=== PATIENT | female | born 1985 | race Caucasian/White ===

== ENCOUNTER 2020-06-01 01:01 | Outpatient (CLI) | payer OTHER, SELFPAY ==
[2020-06-01 16:32] LABS: SARS-CoV-2 RNA PCR Negative
== END 2020-06-01 01:02 | disposition home or self-care (01) ==
LOC: ANHCOVIDDT 01:01
PROVIDERS: PCP Family Medicine; Visit Provider Internal Medicine Gastroenterology
DX: Z01.812 Encounter for preprocedural laboratory examination (principal); Z20.828 Contact with and (suspected) exposure to other viral communicable diseases
CPT/HCPCS: 87635; C9803; U0003

== ENCOUNTER 2020-06-03 00:44 | Day surgery (SDC) | payer OTHER, SELFPAY ==
[2020-05-20 15:00] VITALS: BMI 31.2
[2020-06-03] MEDS: LACTATED RINGERS 1,000 ML 150 ML IV CONT (10:25)
[2020-06-03 10:33] VITALS: BP 115/66; PULSE 69; RESP 18; TEMP 36.9; O2SAT 100; BMI 30.9
--- NOTE | 2020-06-03 10:54 | WPDANESEPPF ---
Anes - Initial Pre Proc Eval Procedure: Operation Date: 06/03/20 11:00 Proposed Procedures p Esophagogastroduodenoscopy - Adalberto Salcedo MD Date/Time: 06/03/20 10:54 Surgeon: Adalberto Salcedo MD Pre Op Diagnosis: GERD Patient Data Age: 34 Gender: F Height: 5 ft 1 in Weight: 74.3 kg Last Vital Signs Temp 36.9 C 06/03/20 10:33 Pulse 69 06/03/20 10:33 Resp 18 06/03/20 10:33 BP 115/66 06/03/20 10:33 Pulse Ox 100 06/03/20 10:33 Allergies Allergy/AdvReac Type Severity Reaction Status Date / Time codeine Allergy Unknown Unknown Verified 06/02/20 12:29 naproxen Allergy Unknown Difficulty Verified 06/02/20 12:29 Breathing Home Medications Medication Instructions Recorded Confirmed Type cetirizine 10 mg tablet 10 mg PO DAILY 04/17/20 06/02/20 History esomeprazole magnesium 20 mg 20 mg PO DAILY 04/17/20 06/02/20 History tablet,delayed release fluticasone propionate 50 1 spray NASAL DAILY 04/17/20 06/02/20 History mcg/actuation nasal spray,suspension ondansetron HCl 8 mg tablet 8 mg PO Q12H 04/17/20 06/02/20 History propranolol 120 mg 120 mg PO DAILY 04/17/20 06/02/20 History capsule,extended release 24 hr rizatriptan 10 mg tablet 10 mg PO .PRN tablet 04/17/20 06/02/20 History sumatriptan succinate 100 mg tablet 100 mg PO .PRN tablet 04/17/20 06/02/20 History cholecalciferol (vitamin D3) 1,250 1,250 mcg PO WEEKLY 05/13/20 06/02/20 History mcg (50,000 unit) capsule famotidine 20 mg tablet 20 mg PO DAILY 05/13/20 06/02/20 History rimegepant 75 mg disintegrating 75 mg PO ONCE PRN 05/13/20 06/02/20 History tablet duloxetine 60 mg capsule,delayed 60 mg PO DAILY #90 cap 06/02/20 06/02/20 Rx release Patient hx anesthesia problems: none Family hx anesthesia problems: none PMFSH Past Medical History Medical History Anxiety Asthma Bleeding tendency Endometriosis Fibromyalgia Headache Hiatal hernia Migraine Neurocardiogenic syncope Psychiatric disorder Ulcer Family History Family History Father Family history of hypercholesterolemia Mother Hypertension Grandparent Family history of malignant melanoma Family history of malignant neoplasm of skin Social History Social History Alcohol intake: never Anes - Eval Final PreProcedure Day of Procedure 06/03/20 10:54 Patient weight: obese Heart: regular rate and rhythm Lungs: clear to auscultation Airway: Mallampati scale class III Neurological: alert and oriented Last oral intake: >/= 8 hours ASA classification: III Emergent: no Anesthetic plan: proceed Anesthesia type and monitoring: general GIVS and standard monitoring Informed Consent: The patient's anesthetic plan and its attendant risks and benefits were discussed with the patient/family/POA. Questions were solicited and answers provided to the satisfaction of the patient/family/POA.
--- NOTE | 2020-06-03 11:12 | PM.HPGS ---
History of Present Illness History of Present Illness Consent: Risks, benefits, and alternatives have been discussed and questions answered. Patient agrees to proceed with procedure. Chief complaint: GERD Narrative: Debbie Awad is a 34 year old female with longstanding GERD on nexium and better after added pepcid Review of Systems Constitutional: Constitutional: Denies headache(s) and Denies weakness Eyes: Eyes: Denies blurry vision ENT: Reports Normal hearing present, Denies headache(s) and Denies neck pain Cardiovascular: Cardiovascular: Denies chest pain and Denies dyspnea Respiratory: Respiratory: Denies dyspnea Gastrointestinal: Gastrointestinal: Reports no additional gastrointestinal complaints Genitourinary: Genitourinary: Denies dysuria Musculoskeletal: Musculoskeletal: Denies neck pain Integumentary/Breasts: Skin/Breast: Denies dry skin Neurologic: Reports Normal hearing present, Denies headache(s) and Denies weakness Psychiatric: Psychiatric: Denies anxiety Endocrine: Endocrine: Denies change in body appearance Hematologic/Lymphatic: Hematologic/Lymphatic: Denies easy bleeding Allergic/Immunologic: Allergic/Immunologic: Denies urticaria PMFSH Past Medical History Medical History Anxiety Asthma Bleeding tendency Endometriosis Fibromyalgia Headache Hiatal hernia Migraine Neurocardiogenic syncope Psychiatric disorder Ulcer Family History Family History Father Family history of hypercholesterolemia Mother Hypertension Grandparent Family history of malignant melanoma Family history of malignant neoplasm of skin Social History Social History Alcohol intake: never Meds Home Medications and Allergies Home Medications Medication Instructions Recorded Confirmed Type cetirizine 10 mg tablet 10 mg PO DAILY 04/17/20 06/02/20 History esomeprazole magnesium 20 mg 20 mg PO DAILY 04/17/20 06/02/20 History tablet,delayed release fluticasone propionate 50 1 spray NASAL DAILY 04/17/20 06/02/20 History mcg/actuation nasal spray,suspension ondansetron HCl 8 mg tablet 8 mg PO Q12H 04/17/20 06/02/20 History propranolol 120 mg 120 mg PO DAILY 04/17/20 06/02/20 History capsule,extended release 24 hr rizatriptan 10 mg tablet 10 mg PO .PRN tablet 04/17/20 06/02/20 History sumatriptan succinate 100 mg tablet 100 mg PO .PRN tablet 04/17/20 06/02/20 History cholecalciferol (vitamin D3) 1,250 1,250 mcg PO WEEKLY 05/13/20 06/02/20 History mcg (50,000 unit) capsule famotidine 20 mg tablet 20 mg PO DAILY 05/13/20 06/02/20 History rimegepant 75 mg disintegrating 75 mg PO ONCE PRN 05/13/20 06/02/20 History tablet duloxetine 60 mg capsule,delayed 60 mg PO DAILY #90 cap 06/02/20 06/02/20 Rx release Allergies Allergy/AdvReac Type Severity Reaction Status Date / Time codeine Allergy Unknown Unknown Verified 06/02/20 12:29 naproxen Allergy Unknown Difficulty Verified 06/02/20 12:29 Breathing Vital Signs Vital Signs - 24 hr 06/03/20 10:33 Temperature 98.4 F Pulse Rate 69 Respiratory Rate 18 Blood Pressure 115/66 Pulse Oximetry 100 Exam Const: General: comfortable and no acute distress HENMT: General nose exam: Normal nares present Eyes: General: appearance normal, both eyes and all related structures Neck: Neck: no JVD Resp: Auscultation: clear to auscultation bilaterally Cardio: Rate: regular rate Rhythm: regular rhythm GI: Inspection: non-distended GI Palp: Yes Soft to palpation Skin: General skin exam: normal color Neuro: General: gait normal Speech: normal speech Extrem: General: normal to inspection Psych: Mental Status: mental status grossly normal Assessment and Plan Assessment and plan (1) GERD (gastroesophageal reflux disease): Code(
[2020-06-03 11:32] VITALS: BP 103/67; PULSE 67; RESP 19; O2SAT 100
[2020-06-03 11:42] VITALS: BP 116/74; PULSE 63; RESP 20; O2SAT 99
[2020-06-03 11:52] VITALS: BP 114/77; PULSE 66; RESP 20; O2SAT 99
== END 2020-06-03 12:03 | disposition home or self-care (01) ==
PROVIDERS: PCP Family Medicine; Visit Provider Internal Medicine Gastroenterology
PROC: 0DJ08ZZ Inspection of Upper Intestinal Tract, Via Natural or Artificial Opening Endoscopic (ICD-10-PCS; CPT 43235; principal; 2020-06-03 11:00)
DX: K29.50 Unspecified chronic gastritis without bleeding (principal); K21.0 Gastro-esophageal reflux disease with esophagitis; K44.9 Diaphragmatic hernia without obstruction or gangrene; M79.7 Fibromyalgia; F41.9 Anxiety disorder, unspecified; E66.9 Obesity, unspecified; Z68.31 Body mass index [BMI] 31.0-31.9, adult
CPT/HCPCS: 43239; 87635; 88305; C9803; J2704; J7120; U0003

== ENCOUNTER 2020-07-16 11:00 | Outpatient (NON) | payer OTHER, SELFPAY ==
[2020-07-16 21:43] LABS: SARS-CoV-2 RNA PCR Negative
== END 2020-07-16 11:01 ==
LOC: ANHCOVIDDT 11:01
PROVIDERS: PCP Family Medicine; Visit Provider Physician Assistant Medical
DX: R68.89 Other general symptoms and signs (principal); Z20.828 Contact with and (suspected) exposure to other viral communicable diseases
CPT/HCPCS: 87635; C9803; U0003

== ENCOUNTER → 2021-02-16 06:48 | Outpatient (CLI) | payer OTHER, SELFPAY ==
[2021-02-18 17:40] LABS: SARS-CoV-2 RNA PCR Negative
== END ==
PROVIDERS: PCP Family Medicine; Visit Provider Nurse Practitioner Family
DX: Z20.822 Contact with and (suspected) exposure to COVID-19 (principal); R09.89 Other specified symptoms and signs involving the circulatory and respiratory systems
CPT/HCPCS: C9803; U0003; U0005

== ENCOUNTER → 2023-05-25 11:52 | Outpatient (CLI) | payer OTHER, SELFPAY ==
--- NOTE | ~2023-05-25 | MMUS_ITS ---
EXAMINATION: MM diagnostic yonatan LT w kaitlin, US breast LT limited HISTORY: Palpable lump in the upper outer quadrant of the left breast TECHNIQUE: Craniocaudal, mediolateral, and mediolateral oblique 3-D tomosynthesis images of the breas ts were performed and synthetic 2-D images were generated. CAD analysis was submitted and interpreted . High resolution limited left breast ultrasound was performed. COMPARISON: None, baseline BREAST PARENCHYMAL COMPOSITION: The breasts are heterogeneously dense, which may obscure small masses . FINDINGS: MAMMOGRAPHIC FINDINGS: No suspicious mass, calcification, or architectural distortion are identified to suggest malignancy. No mammographic correlate is identified for the reported palpable abnormality of concern. ULTRASOUND: There is no evidence of focal abnormal solid or cystic mass in the vicinity of the reported palpable abnormality of concern. IMPRESSION: 1. No specific mammographic or sonographic correlate is identified for the reported palpable abnormal ity of concern. Further evaluation at this time should be based on clinical assessment. Continued fol low-up physical examination is recommended. 2. Recommend routine screening mammography beginning at age 40. BI-RADS Category 1: Negative Reviewed, dictated and finalized at location L. IMPRESSION: 1. No specific mammographic or sonographic correlate is identified for the repo rted palpable abnormality of concern. Further evaluation at this time should be based on clinical assessment. Continued follow-up physical examination is sam mmended. 2. Recommend routine screening mammography beginning at age 40. BI-RADS Category 1: Negative
== END ==
PROVIDERS: PCP Family Medicine
DX: N63.21 Unspecified lump in the left breast, upper outer quadrant (principal)
CPT/HCPCS: 76642; 77061; 77065; G0279

== ENCOUNTER 2023-09-07 14:22 | Outpatient (CLI) | payer OTHER, SELFPAY ==
--- NOTE | ~2023-09-07 | XR_ITS ---
EXAMINATION: XR chest 2V DATE: 09/07/2023 14:50 INDICATION: Cough. COVID-19. TECHNIQUE: Frontal and lateral views of the chest were obtained. COMPARISON: None. FINDINGS: The chest demonstrates clear lungs without pneumonia, pleural effusion, or pneumothorax. Th e heart size is normal. IMPRESSION: 1. No acute cardiopulmonary disease. Reviewed, dictated and finalized at location A. HER OPERATOR
== END 2023-09-07 14:23 | disposition home or self-care (01) ==
LOC: ANHIMG 14:25
PROVIDERS: PCP Family Medicine; Visit Provider Nurse Practitioner Family
DX: U07.1 COVID-19 (principal)
CPT/HCPCS: 71046

== ENCOUNTER 2025-05-16 08:38 | Emergency (ER) | payer OTHER, SELFPAY ==
--- OUTSIDE RECORDS SUMMARY | 2025-05-14 15:16 | XMS_ITS | Encounter Summary ---
Author Organization [facility] Healthcare Address [address] [place] [address] Care Team Providers Care Pipe Machine Operator Name Role Phone Soy Nguyen MD Primary Care Provider [phone] Encounter Details Date Type Department Care Team (Latest Contact Info) Description 05/14/2025 3:16 PM CDT - 05/14/2025 11:59 PM CDT Hospital Encounter [address] [address] Other dysphagia Discharge Disposition: Discharge to home or self care Social History Tobacco Use Types Packs/Day Years Used Date Smoking Tobacco: Every Day Cigarettes 0.5 13 Started: 04/22/2005; Last attempted to quit: 04/22/2018 Smokeless Tobacco: Never Alcohol Use Standard Drinks/Week Comments Yes 0 (1 standard drink = 0.6 oz pur e alcohol) Comments Unknown Sex and Gender Information Value Date Recorded Sex Assigned at Not on file 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 Gender Identity Not on file Sexual Orientation Not on file documented as of this encounter Medications at Time of Discharge acetaZOLAMIDE (DIAMOX) 125 mg tablet Take 1 tab by mouth twice daily starting 2-3 day before flying/altitude change 30 tablet 1 12/12/2022 buPROPion SR (WELLBUTRIN SR) 150 mg 12 hr tablet Take 1 tablet (150 mg total) by mouth 2 (two) times a day dextroamphetamine-a mphetamine XR (ADDERALL XR) 15 mg 24 hr capsule Take 1 capsule (15 mg total) by mouth daily 06/04/[address] (NexIUM) 40 mg capsule Take 1 capsule (40 mg total) by mouth daily before breakfast famotidine (PEPCID) 20 mg tablet Take 1 tablet (20 mg total) by mouth 2 (two) times a day hydrOXYzine (ATARAX) 25 mg tablet 07/18/2023 ibuprofen (ADVIL,MOTRIN) 600 mg tablet 1 tablet (600 mg total) daily 03/24/2017 ketorolac (TORADOL) 10 mg tablet Take 1 tablet (10 mg total) by mouth every 6 (six) hours as needed for pain Do not exceed 3 doses in 24 hrs and do not take more than 2 consecutive days. 15 tablet 1 04/04/2025 ondansetron ODT (ZOFRAN-ODT) [address] 1 TABLET ON THE TONGUE EVERY 8 HOURS NEEDED FOR NAUSEA OR VOMITING 27 tablet 2 10/08/2024 ondansetron ODT (ZOFRAN-ODT) 8 mg disintegrating tabletIndications:C hronic migraine without aura without status migrainosus, not intractable Take 1 tablet (8 mg total) by mouth every 8 (eight) hours as needed for nausea or vomiting 20 tablet 1 12/28/2023 predniSONE (DELTASONE) 20 mg tablet Take 1 tablet (20 mg) by mouth daily for 5 days 5 tablet 05/14/2025 05/19/20 25 rimegepant (Nurtec ODT) tablet,disintegrati ngIndications:Chron ic migraine without aura without status migrainosus, not intractable Take 1 tablet (75 mg total) by mouth daily as needed (migraine) 8 tablet 11 06/24/2024 rizatriptan (MAXALT) 5 mg tabletIndications:C hronic migraine without aura without status migrainosus, not intractable TAKE 1 TABLET AT ONSET OF MIGRAINE, MAY REPEAT IN 2 HOURS IF UNRESOLVED.DO NOT EXCEED 3 IN 24 HOURS 27 tablet 3 08/28/2024 spironolactone (ALDACTONE) 100 mg tablet 05/31/2024 SUMAtriptan (IMITREX) 100 mg tabletIndications:C hronic migraine without aura without status migrainosus, not intractable TAKE 1 TABLET AT ONSET OF MIGRAINE, MAY REPEAT ONCE AFTER 2 HOURS IF NEEDED.MAXIMUM 2 TABLETS IN 24 HOURS 27 tablet 3 08/28/2024 traZODone (DESYREL) 50 mg tablet Take 1 tablet (50 mg total) by mouth as needed 03/03/2023 documented as of this encounter Discharge Disposition Disposition Code Departure Means Destination Discharge to home or self care documented in this encounter Plan of Treatment Not on file documented as of this encounter Procedures Procedure Name Priority Date/Time Associated Diagnosis Comments THROAT CULTURE Routine 05/14/2025 3:16 PM CDT Other dysphagia documented in this encounter Results * Throat culture Throat (05/14/2025 3:16 PM CDT) Report Final Report: No growth of pathogens. Comment:Testing performed by : [facility], [address] [place]., [address] Throat 05/14/2025 3:16 PM CDT 05/15/2025 1:15 AM CDT Narrative JONATHAN Prabhakar 05/15/2025 8:11 PM CDT Testing performed by [facility] ([phone]). us [facility]CRO[facility] - GENER AL ORDERABLES Final Result JONATHAN LUIS CARLOS [address] Department of Laboratories [place], [place] [phone] documented in this encounter Visit Diagnoses Diagnosis Other dysphagia documented in this encounter Care Teams Pipe Machine Operator Relationship Specialty Start Date End Date Soy Nguyen MD PCP - General Family Medicine 03/24/17 documented as of this encounter
--- NOTE | ~2025-05-16 | CT_ITS ---
EXAMINATION: CT soft tissue neck chest w DATE: 05/16/2025 10:06 INDICATION: Dysphagia TECHNIQUE: Computed tomography (CT) of the neck and chest was performed with 75 mL Omnipaque-350 intravenous contrast. Automated exposure control and iterative reconstruction technique were employed. The dose-length product was 449.54 mGy-cm. COMPARISON: None FINDINGS: Neck CT: Orbits are normal. The paranasal sinuses are clear. Mastoid aircells and middle ear cavities are clear. Submandibular and parotid glands are normal and symmetric. Thyroid gland is unremarkable. There are scattered normal-sized lymph nodes in the neck, no lymphadenopathy. Airway is unremarkable. Epiglottis, aryepiglottic folds and retropharyngeal soft tissues are normal. No masses, abscess or abnormal fluid collections identified. The vasculature is patent and normal in caliber. Likely positional mild reversal of the normal cervical lordosis with mild lower cervical spondylosis. Chest CT: There are couple calcified right upper lobe nodules consistent with old granulomatous disease. No other suspicious pulmonary nodules, pneumonia, pulmonary edema or pleural effusion. Heart size is normal. No pericardial effusion. Normal-appearing diverticulum of [place] along the proximal descending thoracic aorta. No aortic dissection. There is good contrast opacification of the pulmonary arteries demonstrating no pulmonary embolism. No pathologically enlarged thoracic lymphadenopathy. Esophagus appears unremarkable without evident wall thickening or impinging lesions. Visualized upper abdomen is unremarkable. Mild thoracic spondylosis. IMPRESSION: 1. No etiology for reported dysphagia or acute cardiopulmonary disease. Reviewed, dictated and finalized at location A.
--- OUTSIDE RECORDS SUMMARY | 2025-05-16 02:08 | XMS_ITS | Encounter Summary ---
Author Organization [facility] Healthcare Address [address] [place] [address] Care Team Providers Care Java Development Team Lead Name Role Phone Soy Nguyen MD Primary Care Provider Reason for Visit * Reason Comments Sore Throat Encounter Details Date Type Department Care Team (Late st Contact Info) Description 05/16/2025 2:08 AM CDT - 05/16/2025 3:19 AM CDT Emergency [facility] Emergency Department [facility] [place], [place] [address] Discharge Disposition: Left without being seen Social History Tobacco Use Types Packs/Day Years Used Date Smoking Tobacco: Every Day Cigarettes 0.5 13 Started: 04/22/2005; Last attempted to quit: 04/22/2018 Smokeless Tobacco: Never Alcohol Use Standard Drinks/Week Comments Yes 0 (1 standard drink = 0.6 oz pur e alcohol) Personal Safety Answer Date Recorded Have you ever been in or are you currently in a harmful physical or emotional relationship or is someone making you feel afraid or unsafe? 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 Gender Identity Not on file Sexual Orientation Not on file documented as of this encounter Last Filed Vital Signs Vital Sign Reading Time Taken Comments Blood Pressure 133/96 05/16/2025 2:14 AM CDT Pulse 96 05/16/2025 2:14 AM CDT Temperature 37.1 C (98.7 F) 05/16/2025 2:14 AM CDT Respiratory Rate 20 05/16/2025 2:14 AM CDT Oxygen Saturation 100% 05/16/2025 2:14 AM CDT Inhaled Oxygen Concentration - - Weight 58.5 kg (129 lb) 05/16/2025 2:14 AM CDT Height - - Body Mass Index 24.37 04/21/2025 3:01 PM CDT documented in this encounter Medications at Time of Discharge [...] Discharge Disposition Disposition Code Departure Means Destination Left without being seen documented in this encounter ED Notes * Jessica Vegas RN - 05/16/2025 2:12 AM CDT Ongoing sore throat x 2 weeks, states has been having trouble swallowing pills. Has been swabbed for strep, which was negative and seen at yesterday. Speaking in clear sentences in triage without noted distress. Has ENT appt this morning at 9. documented in this encounter Plan of Treatment Not on file documented as of this encounter Visit Diagnoses Not on filedocumented in this encounter Care Teams Java Development Team Lead Relationship Specialty Start Date End Date Soy Nguyen MD PCP - General Family Medicine 03/24/17 documented as of this encounter
--- OUTSIDE RECORDS SUMMARY | 2025-05-16 08:42 | XMS_ITS | Encounter Summary ---
Author Organization [facility] Healthcare Address [address] [place] [address] Care Team Providers Care Technical Sales Support Specialist Name Role Phone Roxana Gauthier DO Primary Care Provider + [phone] Roxana Gauthier DO Primary Care Provider + [phone] Soy Nguyen MD Primary Care Provider [phone] Encounter Details Date Type Department Care Team (Late st Contact Info) Description 1984 Orders Only [facility] [address] [place] [address] Scanning, Provider Social History Tobacco Use Types Packs/Day Years Used Date Smoking Tobacco: Never Assessed Comments Unknown Sex and Gender Information Value Date Recorded Sex Assigned at Not on file 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 Gender Identity Not on file Sexual Orientation Not on file documented as of this encounter Plan of Treatment Not on file documented as of this encounter Procedures Procedure Name Priority Date/Time Associated Diagnosis Comments CARDIOLOGY DOCUMENT SCAN 1984 documented in this encounter Results * Cardiology Document Scan (1984) Anatomical Region Laterality Modality Other us Provider Scanning [facility] CARDIAC SERVICES PROCEDURES Final Result documented in this encounter Visit Diagnoses Not on filedocumented in this encounter Care Teams Technical Sales Support Specialist Relationship Specialty Start Date End Date Roxana Gauthier DO [address] [place] [address] PCP - General 02/15/10 03/23/17 [place] [address] [place] [address] [address] [place], [place] [id number] PCP - General 09/01/09 02/14/10 Soy Nguyen MD [address] [place] [address] [address] [place] [address] PCP - General Family Medicine 03/24/17 documented as of this encounter
--- OUTSIDE RECORDS SUMMARY | 2025-05-16 08:42 | XMS_ITS | Clinical Summary ---
Author Organization [facility] Address [address] [place] [address] Phone Care Team Providers Care Polisher And Buffer Name Role Phone Soy Nguyen MD Primary Care Provider [phone] Allergies Active Allergy Reactions Criticality Noted Date Comments Fremanezumab-Vfrm Rash Medium 05/14/2025 Codeine Stomach upset Reaction: GI UPSET, Naproxen Anaphylaxis High 09/16/2011 Propoxyphene Shortness of breath High Reaction: DIFF BREATHING, Medications ibuprofen (ADVIL,MOTRIN) 600 mg tablet 1 tablet (600 mg total) daily [address] (NexIUM) 40 mg capsule Take 1 capsule (40 mg total) by mouth daily before breakfast Active famotidine (PEPCID) 20 mg tablet Take 1 tablet (20 mg total) by mouth 2 (two) times a day Active buPROPion SR (WELLBUTRIN SR) 150 mg 12 hr tablet Take 1 tablet (150 mg total) by mouth 2 (two) times a day Active acetaZOLAMIDE (DIAMOX) 125 mg tablet Take 1 tab by mouth twice daily starting 2-3 day before flying/altitud e change 30 tablet 1 023 Active traZODone (DESYREL) 50 mg tablet Take 1 tablet (50 mg total) by mouth as needed 023 Active hydrOXYzine (ATARAX) 25 mg tablet 023 Active ondansetron ODT (ZOFRAN-ODT) 8 mg disintegrating tabletIndications :Chronic migraine without aura without status migrainosus, not intractable Take 1 tablet (8 mg total) by mouth every 8 (eight) hours as needed for nausea or vomiting 20 tablet 1 Active Additional Information Patient not taking.Reported on 05/14/2025 dextroamphetamine -amphetamine XR (ADDERALL XR) 15 mg 24 hr capsule Take 1 capsule (15 mg total) by mouth daily Active spironolactone (ALDACTONE) 100 mg tablet Active rimegepant (Nurtec ODT) tablet,disintegra tingIndications:C hronic migraine without aura without status migrainosus, not intractable Take 1 tablet (75 mg total) by mouth daily as needed (migraine) 8 tablet 11 Active SUMAtriptan (IMITREX) 100 mg tabletIndications :Chronic migraine without aura without status migrainosus, not intractable TAKE 1 TABLET AT ONSET OF MIGRAINE, MAY REPEAT ONCE AFTER 2 HOURS IF NEEDED.MAXIMUM 2 TABLETS IN 24 HOURS 27 tablet 3 Active rizatriptan (MAXALT) 5 mg tabletIndications :Chronic migraine without aura without status migrainosus, not intractable TAKE 1 TABLET AT ONSET OF MIGRAINE, MAY REPEAT IN 2 HOURS IF UNRESOLVED.DO NOT EXCEED 3 IN 24 HOURS 27 tablet 3 024 Active ondansetron ODT (ZOFRAN-ODT) [address] 1 TABLET ON THE TONGUE EVERY 8 HOURS NEEDED FOR NAUSEA OR VOMITING 27 tablet 2 Active ketorolac (TORADOL) 10 mg tablet Take 1 tablet (10 mg total) by mouth every 6 (six) hours as needed for pain Do not exceed 3 doses in 24 hrs and do not take more than 2 consecutive days. 15 tablet 1 Active predniSONE (DELTASONE) 20 mg tablet Take 1 tablet (20 mg) by mouth daily for 5 days 5 tablet 025 2024 Active propranoloL (INDERAL) 20 mg tablet Take 1 tablet (20 mg total) by mouth 2 (two) times a day 180 tablet 1 025 2024 Discontinued fremanezumab-vfrm (Ajovy Autoinjector) 225 mg/1.5 mL auto-injector subcutaneous auto-injector Inject 1.5 mL (225 mg total) under the skin every 30 (thirty) days 1.5 mL 11 025 2024 Discontinued Hospital, Clinic, or Other Facility Administered Medication Ordered Dose Route Frequency Start Date End Date Status onabotulinumtoxin A (BOTOX) 200 unit injection 200 UnitsIndications:Int ractable chronic migraine without aura and without status migrainosus 200 Units OTHER Once for Clinic-Administer ed Medication 03/25/2024 Active onabotulinumtoxin A (BOTOX) 200 unit injection 200 UnitsIndications:Int ractable chronic migraine without aura and without status migrainosus 200 Units OTHER Once for Clinic-Administer ed Medication 03/10/2025 Active onabotulinumtoxin A (BOTOX) 200 unit injection 200 UnitsIndications:Int ractable chronic migraine without aura and without status migrainosus 200 Units OTHER Once for Clinic-Administer ed Medication 04/21/2025 04/21/2025 Ended Active Problems Problem Noted Date Diagnosed Date Chronic pain of left knee 05/23/2019 Chronic sinusitis 04/05/2019 Intractable chronic migraine without aura and without status migrainosus 04/23/2018 Generalized anxiety disorder 04/23/2018 Anxiety 11/09/2006 Atypical migraine 11/09/2006 Encounters Date Type Department Care Team Description 05/16/2025 2:08 AM CDT - 05/16/2025 3:19 AM CDT Emergency [facility] Emergency Department [address] [place] [address] Discharge Disposition: Left without being seen 05/16/2025 Results Follow-Up [facility] [address] [phone] Kena Victor NP Throat culture Throat 05/14/2025 3:16 PM CDT - 05/14/2025 11:59 PM CDT Hospital Encounter [address] [address] Other dysphagia Discharge Disposition: Discharge to home or self care 05/14/2025 2:45 PM CDT Office Visit [facility] [address] [phone] Marie Oseguera PA Other dysphagia (Primary Dx) 04/23/2025 8:39 AM CDT - 04/23/2025 11:59 PM CDT Hospital Encounter [facility] [address] [place] [address] Discharge Disposition: Discharge to home or self care 04/21/2025 3:20 PM CDT Procedure visit [facility] General Neurology [address] [facility] 6th [address] [place] [phone] Yasmine Campbell PA Intractable chronic migraine without aura and without status migrainosus (Primary Dx) 04/09/2025 Orders Only [facility] General Neurology [address] [place] [phone] Carrie Trinidad Intractable chronic migraine without aura and without status migrainosus (Primary Dx) 04/07/2025 Telephone [facility] General Neurology [address] [place] [phone] Marvin Enriquez RN 04/04/2025 10:00 AM CDT Telemedicine [facility] General Neurology [address] [place] [phone] Yasmine Campbell PA Intractable chronic migraine without aura and without status migrainosus 02/24/2025 Telephone [facility] General Neurology [address] [place] [phone] Yasmine Campbell PA Ajovy PA 02/21/2025 Orders Only [facility] General Neurology [address] [place] [phone] Yasmine Campbell PA from Last 3 Months Surgical History Surgery Date Site/Laterality Comments SECTION Section - (Added by TW Conv) VT EXPLORATORY LAPAROTOMY CELIOTOMY W/WO BIOPSY SPX Exploratory Laparotomy - endometriosis (Added by TW Conv) SECTION SEPTOPLASTY COSMETIC SURGERY Medical History Medical History Date Comments Personal history of other sp ecified conditions History of headache - (Added by TW Conv) Pre-eclampsia Preeclampsia - 1 st (Added by TW Conv) Endometriosis Endometriosis - (Added by TW Conv) Anxiety Asthma Gastric reflux Migraines Allergic rhinitis Sleep apnea Urinary tract infection Fibromyalgia Jaqueline-Danlos syndrome Neurocardiogenic syncope GERD (gastroesophageal reflux disease) Autoimmune disease Menstrual problem Family History Medical History Relation Name Comments Kidney disease Daughter Glenna Hypertension Mother Migraines Mother Seizures Mother Depression Other 1 Depression - mo ther (Added by TW Conv) Headache Other 2 Headache - pare nts (Added by TW Conv) Anxiety disorder Other 3 Anxiety - f ather (Added by TW Conv) Relation Name Status Comments Daughter Glenna Mother Other 1 Other 2 Other 3 Social History Tobacco Use Types Packs/Day Years Used Date Smoking Tobacco: Every Day Cigarettes 0.5 13 Started: 04/22/2005; Last attempted to quit: 04/22/2018 Smokeless Tobacco: Never Tobacco Cessation:Ready to Q uit: Not Asked; Counseling Given: Not Answered Alcohol Use Standard Drinks/Week Comments Yes 0 [...] on file 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 Gender Identity Not on file Sexual Orientation Not on file Obstetrics History Last Filed Vital Signs Vital Sign Reading Time Taken Comments Blood Pressure 133/96 05/16/2025 2:14 AM CDT Pulse 96 05/16/2025 2:14 AM CDT Temperature 37.1 C (98.7 F) 05/16/2025 2:14 AM CDT Respiratory Rate 20 05/16/2025 2:14 AM CDT Oxygen Saturation 100% 05/16/2025 2:14 AM CDT Inhaled Oxygen Concentration - - Weight 58.5 kg (129 lb) 05/16/2025 2:14 AM CDT Height 154.9 cm (5' 1) 04/21/2025 3:01 PM CDT Body Mass Index 24.37 04/21/2025 3:01 PM CDT Plan of Treatment Health Maintenance Due Date Last Done Comments Breast Cancer Screening-Mammogram 1984 Depression Screening 1984 Hepatitis C Screening 1984 DTaP/Tdap/Td Vaccine (1 - Tdap) 11/30/1995 Varicella Vaccines (1 of 2 - 13+ 2-dose series) 1997 Hepatitis B Screening 2002 Regular Well Visit/Exam 18-64 2002 HPV Vaccines (1 - 3-dose SCD M series) 11/30/2011 Pneumococcal vaccine <65 (2 of 2 - PCV) 07/08/2014 07/08/2013 Influenza Vaccine (#1) 2025 6, 06/12/2015, 05/22/2014, Additional history exists Procedures Procedure Name Priority Date/Time Associated Diagnosis Comments THROAT CULTURE Routine 05/14/2025 3:16 PM CDT Other dysphagia POCT RAPID STREP Routine 05/14/2025 2:55 PM CDT Other dysphagia XR TRANSFER OF OUTSIDE FILMS Routine 04/23/2025 8:39 AM CDT from Last 3 Months Results * Throat culture Throat (05/14/2025 3:16 PM CDT) Report Final Report: No growth of pathogens. Comment:Testing performed by : [facility], [address] [place] [address] Throat 05/14/2025 3:16 PM CDT 05/15/2025 1:15 AM CDT Narrative JONATHAN ALDRIDGE - 05/15/2025 8:11 PM CDT Testing performed by [facility] Microbiology Laboratory ([phone]). us Marie [facility] MICROBIOLOGY - GENER AL ORDERABLES Final Result JONATHAN ALDRIDGE [address] Department [place] [address] * POCT rapid strep A (05/14/2025 2:55 PM CDT) Rapid Strep A, POC Negative Negative Swab 05/14/2025 2:55 PM CDT us Marie [facility] POINT OF CARE TEST ORDER FRANCIS Final Result * XR Outside Reference (04/23/2025 8:39 AM CDT) Impressions [facility] - 04/23/2025 8:39 AM CDT These images are for Reference purposes only and have not been reviewed by [facility]. There will be no report generated by a [facility]. Narrative [facility] - 04/23/2025 8:39 AM CDT EXAMINATION: Images For Reference Purposes Only us Yasmine [facility] XR PROCEDURES Final Re sult [facility] from Last 3 Months Insurance [facility]PPO Address: [facility] [id number] [place] [address] [employer] [facility]/PPO Address: [address] [place] [phone] [employer] H[facility]/PPO Address: [address] [place] [phone] Care Teams Polisher And Buffer Relationship Specialty Start Date End Date Soy Nguyen MD PCP - General Family Medicine 03/24/17
--- OUTSIDE RECORDS SUMMARY | 2025-05-16 08:42 | XMS_ITS | Encounter Summary ---
Author Organization [facility] Address [address] [place] [address] [place] [address] Care Team Providers Care Echo Vasc Tech Name Role Phone Soy Nguyen MD Primary Care Provider [phone] Ashley Paiz MD Unavailable Penny Carmona MD Unavailable [phone] Encounter Details Date Type Department Care Team ([facility]) Description 05/02/2019 Lab Requisition [facility] [address] [place] [phone] Latonia Salazar MD [address] [facility] [facility] [place] [address] Social History Tobacco Use Types Packs/Day Years Used Date Smoking Tobacco: Every Day Cigarettes Smokeless Tobacco: Never Alcohol Use Standard Drinks/Week Comments No 0 (1 standard drink = 0.6 oz pur e alcohol) Comments No Sex and Gender Information Value Date Recorded Sex Assigned at Not on file 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 Gender Identity Not on file Sexual Orientation Not on file documented as of this encounter Plan of Treatment Upcoming Encounters Date Type Department Care Team (Late st Contact Info) Description 05/29/2025 9:00 AM CDT Office Visit [facility] - Rheumatology [address] [address] [facility] [address] [place] [address] [place] [address] [facility] [address] [place] [address] documented as of this encounter Procedures Procedure Name Priority Date/Time Associated Diagnosis Comments DERMATOPATH TECHNICAL REPORT Routine 05/01/2019 12:00 AM CDT documented in this encounter Results * DERMATOPATH TECHNICAL REPORT (05/01/2019 12:00 AM CDT) Case Report Dermatopathology Report Case: [id number] Authorizing Provider: Latonia Salazar MD Collected: 05/01/2019 12:00 AM Pathologist: Kathy Barba MD Received: 05/02/2019 05:43 AM Specimen: Skin, left post auricular 2:17 PM CDT DERMATOPATHOLOGY LABORATORY Clinical History Angioma, BCC. Kyle papule. 2:17 PM CDT DERMATOPATHOLOGY LABORATORY Gross Description Specimen A: Received is one formalin filled container labeled with the patient's name and designated left post auricular. The specimen consists of a shave measuring [id number]. Jar 0. [facility] Dermatopathology Laboratory performed the technical component only. 2:17 PM CDT DERMATOPATHOLOGY LABORATORY Embedded Images 2:17 PM CDT DERMATOPATHOLOGY LABORATORY DISCLAIMER An external and internal positive and negative controls are appropriate for the histochemical, immunohistochemical and immunofluorescence stain(s) in this case (if any), except where stated explicitly. The performance characteristics of the stain(s) cited in this report were developed and its performance characteristic determined by the Dermatopathology Laboratory at [facility], directed by Dr. Cj Acosta. These tests need not be, and therefore are not, approved by the [place] Food and Drug Administration. The tests are used for clinical purposes. 08/08/201 9 2:17 PM CDT DERMATOPATHOLOGY LABORATORY at 1417 CDT Pathology/Cytolog y TISSUE SPECIMEN FROM SKIN / Unknown 05/01/2019 05/02/2019 5:43 AM CDT Latonia Salazar MD LAB - PATHOLOGY/CYTOLOGY ORD ERABLES Final Result DERMATOPATHOLOGY LABORATORY [facility] - Department of Dermatology [address] [place] [address], 5th Floor Lab [address] [phone] documented in this encounter Visit Diagnoses Not on filedocumented in this encounter Care Teams Echo Vasc Tech Relationship Specialty Start Date End Date Soy Nguyen MD [address] [place] [phone] PCP - General Family Medicine 03/24/17 [place] [address] [place] [address] Rheumatology 05/25/17 [place] [address] [place] [address] Pediatrics 05/26/17 documented as of this encounter
--- OUTSIDE RECORDS SUMMARY | 2025-05-16 08:42 | XMS_ITS | Clinical Summary ---
Author Organization [facility] Address [facility] [place] [address] Care Team Providers Care Marketing Proposal Specialist Name Role Phone Soy Nguyen MD Primary Care Provider [phone] Ashley Paiz MD Unavailable Penny Carmona MD Unavailable [phone] Source Comments [facility],non-owned Affiliates and Associated Physician Practices is amultiple site organization consisting of ambulatory clinics and hospital sitesin [place], [place], [place] and [place]. This disclosure is being madepursuant to the Care Everywhere program and may not contain all information available regarding this patient. Last updated 18.[facility] [employer] Allergies Active Allergy Reactions Criticality Noted Date Comments Codeine Nausea and/or Vomiting 09/16/2011 Naproxen Anaphylaxis High 09/16/2011 Propoxyphene N-Apap 03/06/2008 Darvocet Vomit Medications * Be aware that medications may not be up to date on this document. Alwaysverify current medications with the patient. SUMAtriptan (IMITREX) 100 MG tabletIndicatio ns:Pain in both knees, unspecified chronicity Take 1 (one) tablet by mouth daily as needed - may repeat one time for Migraine No more than 2 doses in 24 hours. Active ibuprofen (MOTRIN) 600 MG tabletIndicatio ns:Pain in both knees, unspecified chronicity Take 1 (one) tablet by mouth every 8 hours as needed for Pain 0 7 Active propranolol CR 24hr (INDERAL LA) 120 MG capsuleIndicati ons:Pain in both knees, unspecified chronicity Take 1 (one) capsule by mouth once daily 5 Active rizatriptan (MAXALT) 5 MG tabletIndicatio ns:Pain in both knees, unspecified chronicity Take 1 (one) tablet by mouth as needed for Migraine 5 Active NURTEC 75 MG tablet Take 75 mg by mouth as needed 1 Active esomeprazole (NEXIUM) 40 MG capsule Take 1 (one) capsule by mouth daily before breakfast Active cetirizine (ZYRTEC) 10 MG tablet Take 1 (one) tablet by mouth once daily Active ondansetron (ZOFRAN) 4 MG tablet Take 1 (one) tablet by mouth every 6 hours as needed for Nausea/Vomiting Active Blood Glucose Monitoring Suppl (ONE TOUCH ULTRA 2) w/Device KIT 1 kit by Injection route 2 times daily 1 Active ONETOUCH ULTRA test strip Use 1 (one) strip 2 times daily 1 Active Lancets (ONETOUCH DELICA PLUS 33G EXTRA FINE LANCET) 1 device by Injection route 2 times daily 1 Active azelastine (ASTELIN) 0.1 % nasal spray [place] 2 (two) sprays into each nostril once daily 1 Active levonorgestrel (MIRENA) 20 MCG/DAY IUD 1 (one) device by Intrauterine route once Active acetaZOLAMIDE (Diamox) 125 MG tablet Take 1 tab by mouth twice daily starting 2-3 day before flying/altitude change 3 Active buPROPion SR 12hr (Wellbutrin-SR) 150 MG tablet Take 1 (one) tablet by mouth 2 times daily Active famotidine (Pepcid) 20 MG tablet Take 1 (one) tablet by mouth 2 times daily Active metFORMIN (Glucophage) 500 MG tablet Take 1 (one) tablet by mouth 2 times daily Active traZODone (Desyrel) 50 MG tablet Take 1 (one) tablet by mouth once daily 3 Active acetaminophen (Tylenol) 325 MG tablet Take 2 (two) tablets by mouth every 6 hours as needed for Fever or Pain Maximum allowable Acetaminophen amount = 4 Grams (4000 mg) / 24 hours. 50 tablet 4 Active oxyCODONE, immediate release, (Roxicodone) 5 MG tabletIndicatio ns:Postoperativ e state Take 1 (one) tablet by mouth every 4 hours as needed for Pain 18 tablet 4 Active docusate sodium (Colace) 100 MG capsule Take 1 (one) capsule by mouth once daily 30 capsule 4 Active ondansetron, disintegrating, (Zofran ODT) 4 MG tablet Take 1 (one) tablet by mouth every 6 hours as needed for Nausea/Vomiting Allow tablet to dissolve on the tongue 12 tablet 4 Active Active Problems No known active problems Family History Medical History Relation Name Comments High Blood Pressure Father Other Maternal Grandfather porphyr ia Asthma Mother High Cholesterol Mother Migraine Mother Cancer - Skin, Melanoma Paternal Grandfather Cancer - Skin, Non Melanoma Paternal Grandmother Asthma Sister Celiac Disease Sister Relation Name Status Comments Father Maternal Grandfather Mother Paternal Grandfather Paternal Grandmother Sister Social History Tobacco Use Types Packs/Day Years Used Date Smoking Tobacco: Every Day Cigarettes Smokeless Tobacco: Never Tobacco Cessation:Ready to Q uit: Not Asked; Counseling Given: Not Answered Alcohol Use Standard Drinks/Week Comments No 0 (1 standard drink = 0.6 oz pur e alcohol) PHQ-2 Answer Date Recorded PHQ2 TOTAL SCORE 0 04/26/2023 Comments No Sex and Gender Information Value Date Recorded Sex Assigned at Not on file 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 Gender Identity Not on file Sexual Orientation Not on file 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 Not on file Not on file Last Filed Vital Signs Vital Sign Reading Time Taken Comments Blood Pressure 122/80 03/26/2024 11:24 AM CDT Pulse 72 01/04/2024 6:00 PM CDT Temperature 36.7 C (98.1 F) 01/04/2024 4:36 PM CDT Respiratory Rate 18 01/04/2024 6:00 PM CDT Oxygen Saturation 100% 01/04/2024 6:00 PM CDT Inhaled Oxygen Concentration - - Weight 66.6 kg (146 lb 12.8 oz) 024 11:24 AM CDT Height 154.9 cm (5' 1) 03/26/2024 11:2 4 AM CDT Body Mass Index 27.74 03/26/2024 11:24 AM CDT Plan of Treatment Upcoming Encounters Date Type Department Care Team (Late st Contact Info) Description 05/29/2025 9:00 AM CDT Office Visit [facility] - Rheumatology [id number] [facility] [address] [place] [address] [place] [address] [facility] [address] [place] [address] Health Maintenance Due Date Last Done Comments DTAP/TDAP/TD VACCINES (1 - Tdap) 11/30/2003 HEPATITIS B VACCINE (1 of 3 - 19+ 3-dose series) 11/30/2003 PNEUMOCOCCAL VACCINE (1 of 2 - PCV) 11/30/2003 HPV VACCINE (1 - 3-dose SCDM series) 11/30/2011 LIPID TESTING 11/11/2014 11/11/2009 COVID-19 VACCINE (5 - season) 2024 07/11/2022, 08/18/2021, 12/17/2020, Additional history exists DEPRESSION SCREENING 09/25/2024 04/26/2023 MAMMOGRAM 05/25/2025 05/25/2023 INFLUENZA VACCINE (#1) 2025 , 07/11/2022, 07/19/2016, Additional history exists ZOSTER VACCINE (1 of 2) 2034 HIV SCREENING Completed 12/14/2009 HEPATITIS C SCREENING Completed 04/17/2020, 017 HIB VACCINE Aged Out No longer eligi ble based on patient's age to complete this topic MENINGOCOCCAL (Group B) VACCINE SHARED DECISION-MAKING Aged Out No longer eligible based on patient's age to complete this topic MENINGOCOCCAL GROUPS A/C/Y/W VACCINE Aged Out No longer eligible based on patient's age to complete this topic Procedures Procedure Name Priority Date/Time Associated Diagnosis Comments MAMMOGRAM 05/25/2023 HEPATITIS SCREEN ACUTE Routine 04/17/2020 1:01 PM CDT Numbness and tingling in both hands HIV-1 HIV-2 ANTIBODIES W RFLX REFLEXED Routine 12/14/2009 10:47 AM CDT LIPID PROFILE Routine 11/11/2009 8:25 AM CONTINUOUS YARN DYEING MACHINE OPERATOR from Last 3 Months or Most Recently Relevant to Health Maintenance Results * MAMMOGRAM (05/25/2023) Anatomical Region Laterality Modality Other 05/25/2023 Narrative 05/25/2023 Ordered by an unspecified provider. us Scanned Document SCANNING ONLY Final Result * HEPATITIS SCREEN ACUTE (04/17/2020 1:01 PM CDT) Hepatitis A Virus Antibody IgM Negative Negative [facility] INSURANCE BILL Hepatitis B Virus Surface Antigen Negative Negative [facility] INSURANCE BILL Hepatitis B Core Virus Antibody IgM Negative Negative [facility] INSURANCE BILL Hepatitis C Antibody <0.1 0.0 - 0.9 s/co ratio [facility] INSURANCE BILL Comment: Negative: < 0.8 Indeterminate: 0.8 - 0.9 Positive: > 0.9 . The CDC recommends that a positive HCV antibody result be followed up with a HCV Nucleic Acid Amplification test (076181). Blood BLOOD SPECIMEN / Unknown 04/17/2020 1:01 PM CDT 04/17/2020 Narrative Resulting Agency Comment Lab Testing performed at: [facility] [address] [facility] [id number] us Ashley Paiz MD LAB - CHEMISTRY ORDERABLES Final Result [facility] INSURANCE BILL [address] [place] [address] * HIV-1 HIV-2 ANTIBODIES W RFLX REFLEXED (12/14/2009 10:47 AM CDT) HIV 1/2 EIA Antibody NON-REACTI VE NON-REACT [facility] Comment: A Nonreactive HIV-1/2 antibody result does not exclude HIV infection since the time frame for seroconversion is variable. If acute HIV infection is suspected, antibody retesting and nucleic acid amplification (HIV DNA/RNA) testing is recommended. Test Performed at: [facility] [address] [place] [address] DON EDGE DO,MPH 12/14/2009 10:4 7 AM CDT 12/14/2009 10:40 AM CDT us Hector Brar MD LAB - CHEMISTRY ORDERABLES Final Result [facility] [address] * LIPID PROFILE (11/11/2009 8:25 AM CONTINUOUS YARN DYEING MACHINE OPERATOR) Cholesterol Total 147 120 - 240 mg/dL [facility] Comment: ATP III classification of total cholesterol: <200 mg/dL Desirable 200-239 Borderline high > 240 High HDL 46 37 - 60 mg/dL [facility] Comment: ATP III classification of HDL cholesterol: <40 mg/dL Low; considered a major risk factor >60 mg/dL High; considered a negative risk factor Triglycerides 65 35 - 262 mg/dL [facility] Comment: ATP III classification of Triglycerides: < 150 mg/dL Normal triglycerides 150-199 mg/dL Borderline-high triglycerides 200-400 mg/dL High triglycerides > 500 mg/dL Very high triglycerides LDL Calculated 88 0 - 100 mg/dL [facility] Comment: ATP III classification of LDL cholesterol: <100 mg/dL Optimal 100-129 Near optimal/above optimal 130-159 Borderline high 160-189 High >190 Very high 11/11/2009 8:25 AM CONTINUOUS YARN DYEING MACHINE OPERATOR 11/11/2009 9:20 AM CONTINUOUS YARN DYEING MACHINE OPERATOR us Brent Jacobo MD LAB - CHEMISTRY ORDERABLES Priyanka mihai Result [facility] [address] [place] [address], [facility] [phone] from Last 3 Months or Most Recently Relevant to Health Maintenance Insurance [facility] Care Teams Marketing Proposal Specialist Relationship Specialty Start Date End Date Soy Nguyen MD [address] [place] [address] PCP - General Family Medicine 03/24/17 [place] [address] [address] [place] [phone] Rheumatology 05/25/17 [place] [address] [address] [place] [phone] Pediatrics 05/26/17
--- OUTSIDE RECORDS SUMMARY | 2025-05-16 08:42 | XMS_ITS | Encounter Summary ---
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
--- OUTSIDE RECORDS SUMMARY | 2025-05-16 08:42 | XMS_ITS | Encounter Summary ---
Author Organization [facility] Address [facility] [facility] [place] [address] Care Team Providers Care Rotoformer Backtender Name Role Phone Soy Nguyen MD Primary Care Provider [phone] Ashley Paiz MD Unavailable Penny Carmona MD Unavailable [phone] Reason for Visit * Reason Onset Date Comments Post Op Call 01/05/2024 Encounter Details Date Type Department Care Team (Late st Contact Info) Description 01/05/2024 Telephone [facility]ENDER [place] [address] [facility] [address] [place] [address] Hayes Cueto MD [address] [facility] [address] [place] [address] Post Op Call Social History Tobacco Use Types Packs/Day Years Used Date Smoking Tobacco: Every Day Cigarettes Smokeless Tobacco: Never Alcohol Use Standard Drinks/Week Comments No 0 (1 standard drink = 0.6 oz pur e alcohol) PHQ-2 Answer Date Recorded PHQ2 TOTAL SCORE 0 04/26/2023 Comments No Sex and Gender Information Value Date Recorded Sex Assigned at Not on file 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 Pt had Total Laparoscopic Hysterectomy, Bilateral Salpingectomy yesterday with Dr. Cueto. Pt said that umbilical dressing was saturated this morning so she removed dressing. Pt wanting to know next steps and if she should be concerned. Pt sent [employer] image in as well. Pt said incision is no longer bleeding. Pt worried as the incision looks slightly open. RN went over thatincision is sutured underneath and would recommend pt place 2x2 gauze and tape over incision for protection. RN advised if incision continues to bleed or saturate gauze again to please call or send us a [employer] message. Lateral dressings appear C/D/I. Pt aware can remove those 24 hours post op. RN w ent over if skin glue present can gently pick off after 7 days and leave incisions open to air and keep clean and dry. RN went over s/s of incision concerns and when to notify our office. Pt c/o shoulder and gas pain. RN recommended OTC gas x, warm fluids and moving around. Pt agreeableto this plan. RN gave pt after hours line for any concerns since going into the weekend * Telephone Encounter - ArtraynaMannie - 01/05/2024 9:26 AM CDT Good morning, Patient of Dr. Jesica Cueto had a hysterectomy yesterday. She notes today her gauze covered in blood at the incision site. She is going to go ahead and send a photo to Dr. Cueto via [email or web address]. She kindly asks if a nurse may be able to reach out to her today to make sure she is doing everything properly and to make sure the wound is still okay or any other instructions. CB: [phone] Thank you so much documented in this encounter Plan of Treatment Upcoming Encounters Date Type Department Care Team (Late st Contact Info) Description 05/29/2025 9:00 AM CDT Office Visit [facility] - Rheumatology [address] [facility] [address] [place], [place] [id number] [place] [address] [facility] [address] [place] [address] documented as of this encounter Visit Diagnoses Not on filedocumented in this encounter Care Teams Rotoformer Backtender Relationship Specialty Start Date End Date Soy Nguyen MD [address] [place] [phone] PCP - General Family Medicine 03/24/17 [place] [address] [facility] [address] [place] [address] Rheumatology 05/25/17 [place] [address] [facility] [address] [place] [phone] Pediatrics 05/26/17 documented as of this encounter
[2025-05-16 08:44] VITALS: BP 136/96; PULSE 84; RESP 18; TEMP 36.6; O2SAT 97
[2025-05-16 09:00] VITALS: BP 125/88; PULSE 84; RESP 16; O2SAT 100
[2025-05-16 09:11] LABS: Hematocrit 42.8 % (37.0-47.0); Hemoglobin 14.0 g/dL (12.0-15.0); Immature Granulocyte Percent A 0.5 % (0-0.5); Lymphocytes Absolute Auto 4.27 K/mm3 (0.9-3.2); Mean Corpuscular HGB Conc 32.7 g/dl (32-36); Mean Corpuscular Hemoglobin 28.1 pg (26-34); Mean Corpuscular Volume 85.8 fl (80-100); Nucleated Red Blood Cells Absolute Auto 0.000 K/mm3 (0.0-0.012); Nucleated Red Blood Cells Perc 0.0 % (0.0-0.2); Platelet Count Result 344 k/mm3 (150-375); Red Blood Count 4.99 M/mm3 (4.2-5.4); White Blood Count 14.0 K/mm3 (4.5-10.0)
[2025-05-16 09:32] VITALS: BP 116/78; PULSE 85; RESP 19; O2SAT 98
[2025-05-16 09:33] LABS: Alanine Aminotransferase 29 U/L (6-35); Albumin Level 4.7 g/dL (3.5-5.1); Alkaline Phosphatase 81 U/L (38-126); Anion Gap 9 mmol/L (4-12); Aspartate Amino Transferase 45 U/L (14-36); Bilirubin,Total 0.5 mg/dL (0.2-1.3); Blood Urea Nitrogen 25 mg/dL (7-17); Calcium 9.9 mg/dL (8.4-10.2); Carbon Dioxide 25 mmol/L (22-30); Chloride 101 mmol/L (98-107); Estimated CRCL calculation 53 ml/min; Estimated Glomerular Filt Rate > 60; Glucose 120 mg/dL (65-110); Lipase 134 U/L (23-300); Potassium 4.2 mmol/L (3.4-5.0); Sodium 135 mmol/L (137-145); Total Protein 7.9 g/dL (6.3-8.2)
--- NOTE | 2025-05-16 10:06 | ED_ITS ---
HPI - General Adult General Chief complaint: Recheck/Abnormal Lab/Rx Stated complaint: SENT BY PCP FOR GI WORK UP Time Seen by Provider: 05/16/25 08:43 History of Present Illness HPI narrative: Patient is a 39-year-old female who presents ER with difficulty swallowing. She has history of dysphagia and had EGD 5 years ago for acid reflux. She reports she takes Nexium 40 mg in the morning and Pepcid in the evening. Over last few days she has had increased discomfort at night with lying down. Today she took migraine headache medicine and felt like it got stuck in her throat. She is able to get scoped by Dr. Romero with ENT. He reports her airway is wide open in a row no foreign body seen down to the lateral full of the epiglottis. She is tolerating her oral secretions. Reports she has not had anything to eat or drink since last night outside of taking her pills this morning. She has been trying to get referred to a GI for her discomfort with swallowing but her PCP accidentally sent a referral for a colonoscopy incentive an EGD so his taking a little bit to schedule. She is having normal bowel movements. No dark black stools. No fevers or chills. Denies weight loss. She is a half pack-a-day smoker. No alcohol use. Related Data Home Medications ?Medication ?Instructions ?Recorded ?Confirmed ?Last Taken ?Type ondansetron HCl 8 mg tablet 8 mg PO Q12H 04/17/2002/2306/02/20 21:30 History (Zofran) rizatriptan 10 mg tablet 10 mg PO .PRN 04/17/2003/06 Unknown History sumatriptan succinate 100 mg tablet 100 mg PO .PRN 03/06/25 Unknown History rimegepant 75 mg disintegrating 75 mg PO ONCE PRN Head ache 05/13/20 03/06/25 Unknown History tablet (Nurtec ODT) Allergies Allergy/AdvReac Type Severity Reaction Status Date / Time fremanezumab-vfrm (From Allergy Mild Hives Verified 05/16/25 08:49 Ajovy Autoinjector) codeine Allergy Unknown Unknown Verified 05/16/25 08:49 naproxen Allergy Unknown Difficulty Verified 05/16/25 08:49 Breathing Review of Systems 2 Review of Systems: All systems reviewed & are unremarkable except as noted in HPI and below Constitutional: Constitutional: Reports no additional constitutional complaints ENT: Reports system reviewed and no additional complaints, except as documented Cardiovascular: Cardiovascular: Reports no additional cardiovascular complaints Gastrointestinal: Gastrointestinal: Reports no additional gastrointestinal complaints [facility] Past Medical History Medical History Anxiety ADHD Screening for thyroid disorder Hypertension BMI 29.0-29.9,adult BMI 28.0-28.9,adult BMI 27.0-27.9,adult GERD (gastroesophageal reflux disease) Neurocardiogenic syncope Hiatal hernia Endometriosis Fibromyalgia Anxiety Psychiatric disorder Ulcer Migraine Headache Asthma Bleeding tendency Surgical History Surgical History History of hysterectomy Family History Family History Father Family history of hypercholesterolemia Hypercholesteremia Mother Hypertension Asthma Migraine Gastroparesis Alcoholism Grandparent Family history of malignant melanoma Family history of malignant neoplasm of skin Sibling Asthma Celiac disease Anxiety Social History Social History Smoking packs per day: 0.5 Smoking cigarettes per day: 10.0 Smoking status: Current every day smoker Tobacco type: cigarettes Second hand tobacco smoke exposure: No Alcohol intake: current Substance use: never Substance use type: does not use Do You Feel Safe in your Home?: Yes Lack of Transportation: No Lack of Food: Never True Current Housing: I Have Housing Concerned About Future Housing: No Difficulty Paying Gas/Electric Bills: No Difficulty Paying for Meds: No Currently Unemployed: No Education: Master's Degree or Higher Difficulty w/ Childcare or Family Care: No Living arrangements: with family Occupation/Education: occupation Additional occupation/education comments: [employer] Gender identity (if verbalized by the patient): Female Exam 2 Narrative: GENERAL: Well-appearing, well-nourished, and in no acute distress. HEAD: Normocephalic, atraumatic. ENT: Mucous membranes moist. Normal appearing posterior oropharynx. Tolerating oral secretions without issue. NECK: Supple. CHEST: Clear to auscultation. No respiratory distress. HEART: Regular rate and rhythm. Normal peripheral pulses. ABDOMEN: Soft, nontender, nondistended. EXTREMITIES: Normal range of motion. No edema. SKIN: Warm, dry, no rash. NEURO: Alert and oriented x3. PSYCH: Normal mood and affect. Course Course Emergency Course: Discussed lab results with the patient. She has been able tolerate water. I do not feel there is impaction or obstruction of the esophagus. Imaging without mass. Patient will be started on high-dose twice a day PPI at the recommendation of Dr. Herrera. Follow-up outpatient for EGD. Vital Signs Vital signs: Vital Signs Temperature 97.8 F 05/16/25 08:44 Pulse Rate 84 05/16/25 08:44 Respiratory Rate 18 05/16/25 08:44 Blood Pressure 136/96 H 05/16/25 08:44 Pulse Oximetry 97 05/16/25 08:44 Oxygen Delivery Room Air 05/16/25 08:44 Temperature 97.8 F 05/16/25 08:44 Pulse Rate 87 05/16/25 11:01 Respiratory Rate 20 05/16/25 11:01 Blood Pressure 117/87 05/16/25 11:01 Pulse Oximetry 99 05/16/25 10:32 Oxygen Delivery Room Air 05/16/25 08:44 Medical Decision Making Vital Signs Vital Signs: Vital Signs Temperature 97.8 F 05/16/25 08:44 Pulse Rate 84 05/16/25 08:44 Respiratory Rate 18 05/16/25 08:44 Blood Pressure 136/96 H 05/16/25 08:44 Pulse Oximetry 97 05/16/25 08:44 Oxygen Delivery Room Air 05/16/25 08:44 Temperature 97.8 F 05/16/25 08:44 Pulse Rate 87 05/16/25 11:01 Respiratory Rate 20 05/16/25 11:01 Blood Pressure 117/87 05/16/25 11:01 Pulse Oximetry 99 05/16/25 10:32 Oxygen Delivery Room Air 05/16/25 08:44 Lab Data 05/16/25 09:02 05/16/25 09:02 Labs: Lab Results 05/16/25 Range/Units 09:02 WBC 14.0 H (4.5-10.0) K/mm3 RBC 4.99 (4.2-5.4) M/mm3 Hgb 14.0 (12.0-15.0) g/dL Hct 42.8 (37.0-47.0) % MCV 85.8 (80-100) fl MCH 28.1 (26-34) pg MCHC 32.7 (32-36) g/dl RDW 12.6 (11.5-14.5) % Plt Count 344 (150-375) k/mm3 MPV 9.3 (7.4-10.4) fl Immature Gran % (Auto) 0.5 (0-0.5) % Neut % (Auto) 61.0 (45.5-73.1) % Lymph % (Auto) 30.5 (18.3-44.2) % [place] % (Auto) 6.9 (2.6-8.5) % Eos % (Auto) 0.7 (0-4.4) % Baso % (Auto) 0.4 (0.2-1.2) % Lymph # (Auto) 4.27 H (0.9-3.2) K/mm3 [place] # (Auto) 1.0 H (0.1-0.6) K/mm3 Eos # (Auto) 0.1 (0-0.3) K/mm3 Baso # (Auto) 0.1 (0.0-0.1) K/mm3 Abs Immat Gran (auto) 0.07 H (0.00-0.031) K/mm3 Absolute Neuts (auto) 8.5 H (1.3-6.7) K/mm3 Absolute Nucleated RBC 0.000 (0.0-0.012) K/mm3 Nucleated RBC % 0.0 (0.0-0.2) % Sodium 135 L (137-145) mmol/L Potassium 4.2 (3.4-5.0) mmol/L Chloride 101 (98-107) mmol/L Carbon Dioxide 25 (22-30) mmol/L Anion Gap 9 (4-12) mmol/L BUN 25 H (7-17) mg/dL Creatinine 0.93 (0.7-1.0) mg/dL Estim Creat Clear Calc 53 ml/min Estimated GFR > 60 (59 - ) Glucose 120 H (65-110) mg/dL Calcium 9.9 (8.4-10.2) mg/dL Total Bilirubin 0.5 (0.2-1.3) mg/dL AST 45 H (14-36) U/L ALT 29 (6-35) U/L Alkaline Phosphatase 81 (38-126) U/L Total Protein 7.9 (6.3-8.2) g/dL Albumin 4.7 (3.5-5.1) g/dL Lipase 134 (23-300) U/L Imaging Data Radiologist's impression: ITS Impressions Neck/Chest CT 05/16/25 10:11 IMPRESSION: 1. No etiology for reported dysphagia or acute cardiopulmonary disease. Discharge Plan Discharge Clinical Impression: Dysphagia Patient Disposition: Home Condition: Stable Instructions: Diet for Stomach Ulcers and Gastritis (ED), Dysphagia (ED) Additional Instructions: Return ER if you are unable swallow, you cannot breathe, you cannot keep down food water, you lose consciousness, have additional concerns. Your to take high-dose Protonix twice a day, you will need follow-up with GI to have an outpatient endoscopy. Other ways to help with increased acid secretion is to avoid eating any solids 2 hours prior to going to bed. Avoid any alcohol that could act as an irritant. Also stopping smoking would be atkins. Smoking is an independent risk factor for H pylori infection and ulcer formation. Patient Language: Moroccan Prescriptions: New pantoprazole 40 mg tablet,delayed release (DR/EC) 40 mg PO BID Qty: 30 0RF Discontinued Nexium 24HR 20 mg tablet,delayed release (DR/EC) 20 mg PO DAILY famotidine [Pepcid] 20 mg tablet 20 mg PO DAILY No Action sumatriptan succinate 100 mg tablet 100 mg PO .PRN rizatriptan 10 mg tablet 10 mg PO .PRN Rx Instructions: may repeat once after at least 2 hours ondansetron HCl [Zofran] 8 mg tablet 8 mg PO Q12H Nurtec ODT 75 mg tablet,disintegrating 75 mg PO ONCE PRN (Reason: Headache) Rx Instructions: as a single dose; not to exceed 1 dose per 24 hrs OR 15 doses per 30 days cyclobenzaprine 10 mg tablet 10 mg PO TID PRN (Reason: muscle spasm) Qty: 30 0RF Rx Instructions: may cause drowsiness trazodone 50 mg tablet 100 mg PO QHS PRN (Reason: insomnia) Qty: 180 3RF hydroxyzine HCl 25 mg tablet See Rx Instructions .ROUTE .COMPLEX Qty: 270 0RF Dose Instruction: TAKE 1 TABLET BY MOUTH 3 TIMES DAILY NEEDED FOR ANXIETY Rx Instructions: TAKE 1 TABLET BY MOUTH 3 TIMES DAILY NEEDED FOR ANXIETY dextroamphetamine-amphetamine [Adderall XR] 30 mg capsule,extended release 24hr 30 mg PO DAILY Qty: 30 0RF dextroamphetamine-amphetamine [Adderall] 5 mg tablet 5 mg PO DAILY Qty: 30 0RF Rx Instructions: Take 1 tablet at lunch time Has 25mg ER dose of adderall in AM as well spironolactone 100 mg tablet 100 mg PO DAILY Qty: 90 0RF Follow-up/Referrals: Soy Nguyen MD [Primary Care Provider, Family Practice] - 1 Week Hermilo Herrera MD [Physician, Gastroenterology] - 1 Week
[2025-05-16 10:32] VITALS: BP 106/85; PULSE 90; RESP 15; O2SAT 99
[2025-05-16 11:01] VITALS: BP 117/87; PULSE 87; RESP 20
[2025-05-16] MEDS: BELLADONNA ALK/PHENOB ELIX 10 ML, MAG HYDROX/ALUMINUM HYD/SIMETH 30 ML, LIDOCAINE 2% VI... PO (12:15)
== END 2025-05-16 12:24 | disposition home or self-care (01) ==
PROVIDERS: Emergency Provider Emergency Medicine; PCP Family Medicine
DX: R13.10 Dysphagia, unspecified (principal); J45.909 Unspecified asthma, uncomplicated; K21.9 Gastro-esophageal reflux disease without esophagitis; K44.9 Diaphragmatic hernia without obstruction or gangrene; M79.7 Fibromyalgia; N80.9 Endometriosis, unspecified; F90.9 Attention-deficit hyperactivity disorder, unspecified type; F41.9 Anxiety disorder, unspecified; F17.210 Nicotine dependence, cigarettes, uncomplicated; Z90.710 Acquired absence of both cervix and uterus; Z79.899 Other long term (current) drug therapy
CPT/HCPCS: 36415; 70491; 71260; 80053; 83690; 85025; 99284; A9270; Q9967

== ENCOUNTER 2025-06-03 00:27 | Day surgery (SDC) | payer OTHER, SELFPAY ==
--- OUTSIDE RECORDS SUMMARY | 2014-07-29 03:55 | XMS_ITS | Continuity of Care Document ---
Author Organization [facility] Address [address] [place] [address] Phone Care Team Providers Care Sand Tester Name Role Phone Reymundoing Roxana PALMER Unavailable Unavailable Allergies, Adverse Reactions, Alerts Substance Reaction Status Criticality naproxen Other Active No Information Medications Medication Instructions Dosage Effective Dates (start - stop) Status Comments sumatriptan 100 mg tablet take 1 tablet by oral route once after onset of migraine; may repeat after 2 hours if headache returns,not to exceed 200mg in 24hrs 100 MG - Active prednisone 20 mg tablet take 1 tablet by oral route 2 times every day 20 MG - Active Lortab Elixir 10 mg-300 mg/15 mL oral solution take 1 - 2 Teaspoon by oral route every 6 hours as needed for CHEST CONGESTION AND COUGH 1-2 Teaspoon - Active Lortab Elixir 7.5 mg-500 mg/15 mL oral solution take 15 milliliter by oral route every 4 - 6 hours as needed for pain - Active called into pharmacy spoke to Rosalia only has 325 of tyenlol not 500mg. albuterol sulfate HFA 90 mcg/actuation aerosol inhaler inhale 2 puff by inhalation route every 4 - 6 hours as needed - Active hydrocodone 5 mg-acetaminophen 325 mg tablet take 1 tablet by oral route every 6 hours as needed for pain 1.00 tablet - Active propranolol ER 80 mg capsule,24 hr,extended release take 1 capsule by oral route every day 80 MG - Active rizatriptan 5 mg tablet take 1 tablet by oral route once, may repeat at 2 hour intervals; do not exceed 30 mg in 24 hours 5 MG - Active sumatriptan 6 mg/0.5 mL subcutaneous solution inject 0.5 milliliter by subcutaneous route once; may be repeated 1 hour after the first dose if headache pain returns or increases in severity; do not exceed 2 doses within 24 hours 6 MG - Active Zoloft 100 mg tablet take 1 tablet by oral route every day 100 MG - Active Advance Directives Directive Yes / No Effective Date File Name No Information Encounters Encounter Description Practice Location Reason(s) For Visit Diagnoses Date Provider Providers Copied on Encounter [facility], [address], [place], [place], [address] , tel:[phone] [place] No Information Nov-0 4-201 4 Sewing Roxana. [address] [place] [address], [id number], . tel:[phone] [facility], [address], [place], [place], [address] , tel:[phone] [place] No Information Oct-0 8-201 4 Sewing Roxana. [address] [place] [address], [id number], . tel:[phone] [facility], [address], [place], [place], [address] , tel:[phone] [place] BronchitisAcute sinusitis Sep-1 6-201 4 Sewing Roxana. [address] [place] [address], [place], [place], [address], [place]. tel:[phone] Referring Provider: Roxana Gauthier, [address] [place] [address], [place], [address] . tel:[phone] [facility], [address], [place], [place], [address] , tel:[phone] [place] No Information Sep-1 0-201 4 Sewing Roxana. [address] [place] [address], [id number], [place]. tel:[phone] [facility], [address], [place], [place], [address] , [place] tel: [phone] [place] OverweightMigrain e headache without auraContraceptive surveillanceTobac co use 4 Mckenzie Quiñonez. [address], [address], [place], [place], [address]. tel:[phone] Referring Provider: Roxana Gauthier, [address] [place] [address] [address], [place], [address] . tel:[phone] [facility], [address], [place], [place], [address] , [place] tel: [phone] [place] No Information 4 Abrahan Schmidt. [address] [place] [address], [address], [place], [place], [address], [place]. tel:[phone] [facility], [address], [place], [place], [address] , [place] tel: [phone] [place] Migraine 4 Halenkamp Anel. [address], [place], [place], [address]. [phone] Referring Provider: Roxana Gauthier, [address] [place] [address] [address], [place], [address] . tel:[phone] [facility], [address], [place], [place], [address] , [place] tel: [phone] [place] Migraine 4 Kristen Butler. [address], [address], [place], [place], [address], [place]. [phone] Referring Provider: Roxana Gauthier, [address] [place] [address] [address], [place], [address] . tel:[phone] [facility], [address], [place], [place], [address] , [place] tel: [phone] [place] Asthma with acute exacerbation Dec-2 2 4 Andria Coronel. [address] [place] [address], [address], [place], [place], [address], [place]. tel:[phone] Referring Provider: Roxana Gauthier, [address] [place] [address], [place], [address] . tel:[phone] [facility], [address], [place], [place], [address] , [place] tel: [phone] [place] Routine Medical ExamOther forms of migraine without mention of intractable migraineAsthmaDep ressionSmokerRout ine Medical Exam Nov- 4 Peterson Carrie. [address] [place] [address], [address], [place], [place], [address], [place]. tel:[phone] Referring Provider: Roxana Gauthier, [address] [place] [address], [place], [address] . tel:[phone] [facility], [address], [place], [place], [address] , [place] tel: [phone] [place] Vaginitis Nov- 4 Peterson Carrie. [address] [place] [address], [facility] [address], [place], [place], [address], [place]. tel:[phone] Referring Provider: Roxana Gauthier, [address] [place] [address] [address], [place], [address] . tel:[phone] [facility], [address], [place], [address] , [place] tel: [phone] [place] No Information 3 Sewing Roxana. [address] [place] [address], [facility] [address], [place], [place], [address], [place]. tel:[phone] [facility], [address], [place], [place], [address] , [place] tel: [phone] [place] No Information 3 Sewing Roxana. [address] [place] [address], [facility] [address], [place], [place], [address], [place]. tel:[phone] [facility], [address], [place], [place], [address] , [place] tel: [phone] [place] Carpal tunnel syndromeUTI (lower urinary tract infection)Rash 3 Kristen Butler. [address] [place] [address], [facility] [address], [place], [place], [address], [place]. tel:[phone] Referring Provider: Roxana Gauthier, [address] [place] [address], [place], [address] . tel:[phone] [facility], [address], [place], [place], [address] , tel: [phone] [place] Sleep apneaFatigueAnxie ty 3 Kristen Butler. [address] [place] [address], [place] [address], [place], [place], [address], [place]. tel:[phone] Referring Provider: Roxana Gauthier, [address] [place] [address], [place], [address] . tel:[phone] [facility], [address], [place], [place], [address] , tel: [phone] [place] Acute bronchitisAsthma, acute Nov- 2 Basarabescu Berna. [address] [place] [address], [address], [place], [place], [address], [place]. tel:[phone] Referring Provider: Roxana Gauthier, [address] [place] [address] [address], [place], [address] . tel:[phone] [facility], [address], [place], [place], [address] , tel: [phone] [place] Acute sinusitis, unspecifiedFatigu eOverweight 2 Kristen Butler. [address] [place] [address], [facility] [address], [place], [place], [address], [place]. tel:[phone] Referring Provider: Roxana Gauthier, [address] [place] [address], [place], [address] . tel:[phone] [facility], [address], [place], [place], [address] , tel: [phone] [place] Acute sinusitis, unspecifiedDysfun ction of eustachian tube Dec- 2 Mónica Ahuja. [address], [address], [place], [place], [address], [place]. tel:[phone] Referring Provider: Roxana Gauthier, [address], [place], [address] . tel:[phone] [facility], [address], [place], [place], [address] , [place] tel: [phone] [place] No Information 1 Abrahan Schmidt. [address], [address], [place], [place], [address], [place]. [phone] [facility], [address], [place], [place], [address] , [place] tel: [phone] [place] Acute sinusitis, unspecified May-0 1 Kristen Butler. [address], [address], [place], [place], [address], [place]. [phone] Referring Provider: Roxana Gauthier, [address], [place], [address] . tel:[phone] [facility], [address], [place], [place], [address] , [place] tel: [phone] [place] Other wrist sprainRoutine general medical examination at a health care facility 1 Glen Dobbins. [address], [address], [place], [place], [address], [place]. [phone] Referring Provider: Roxana Gauthier, [address], [place], [address] . tel:[phone] [facility], [address], [place], [place], [address] , [place] tel: [phone] [place] DEPRESSIVE DISORDER NEC 1 Mckenzie Quiñonez. [address], [address], [place], [place], [address]. tel:[phone] [facility], [address], [place], [place], [address] , [place] tel: [phone] [place] TOBACCO USE DISORDERNONSPECIF SKIN ERUPT NEC Dec-2 8-201 1 Sewing Roxana. [address] [place] [address], [facility] [address], [place], [place], [address], [place]. tel:[phone] [facility], [address], [place], [place], [address] , [place] tel: [phone] [place] INSOMNIA NOS Dec-0 2-200 9 Sewing Roxana. [address] [place] [address], [address], [place], [place], [address], [place]. [phone] [facility], [address], [place], [place], [address] , [place] tel: [phone] [place] ORGANIC INSOMNIA NOS Jun- 4-200 9 Peterson Carrie. [address] [place] [address], [place] [address], [place], [place], [address], [place]. tel:[phone] [facility], [address], [place], [place], [address] , [place] tel: [phone] [place] SCREEN FOR VENERAL DISGENERALIZD HYPERHIDROSISSCRE ENING-PULMONARY TB January-0 5-200 9 Sewing Roxana. [address] [place] [address], [place] [address], [place], [place], [address], [place]. tel:[phone] [facility], [address], [place], [place], [address] , [place] tel: [phone] [place] CONTRACEPTIVE MANGMT NEC Dec-2 7-200 9 Gakes Olamide. [address] [place] [address], [facility] [address], [place], [place], [address]. tel:[phone] [facility], [address], [place], [place], [address] , [place] tel: [phone] [place] SCREEN-DIABETES MELLITUS Dec-2 7-200 9 Sewing Roxana. [address] [place] [address], [facility] [address], [place], [place], [address], [place]. tel:[phone] [facility], [address], [place], [place], [address] , tel: [phone] [place] VACCINATION FOR DTP-DTAP Nov- 0-200 9 Sewing [facility]. [address] [place] [address], [place] [address], [place], [place], [address], [place]. [phone] [facility], [address], [place], [place], [address] , tel: [phone] [place] NEED PRPHYL VC VRL HEPAT 6200 9 Sewing [facility]. [address], [facility] [address], [place], [place], [address], [place]. tel:[phone] [facility], [address], [place], [place], [address] , tel: [phone] [place] PROPHYLACT IMMUNOTHERAPYVACC IN FOR INFLUENZA 0-200 8 Sewing [facility]. [address] [place] [address], [place] [address], [place], [place], [address], [place]. tel:[phone] [facility], [address], [place], [place], [address] , [place] tel: [phone] [place] PAIN IN LIMB Apr-0 6200 8 Conversion Doctor. [address], [place], [address], [place]. [facility], [address], [place], [place], [address] , tel: [phone] [place] ASTHMA NOS 2200 8 Rhonda Rm. [address] , [place], [place], [address], [place]. tel:[phone] [facility], [address], [place], [place], [address] , [place] tel: [phone] [place] FM HX ENDO/METAB DIS NECCELIAC DISEASE 9200 8 Sewing Roxana. [address] [place] [address], [facility] [address], [place], [place], [address], [place]. tel:[phone] [facility], [address], [place], [place], [address] , [place] tel: [phone] [place] ASTHMA NOS W (AC) EXAC Sep-1 0-200 7 Sewing Roxana. [address] [place] [address], [place] [address], [place], [place], [address], [place]. tel:[phone] [facility], [address], [place], [place], [address] , [place] tel: [phone] [place] ANXIETY STATE NOS Sep-1 0-200 7 Peterson Carrie. [address] [place] [address], [place] [address], [place], [place], [address], [place]. tel:[phone] [facility], [address], [place], [place], [address] , [place] tel: [phone] [place] FM HX-ENDO/METAB DIS NEC Dec- 2-200 6 Sewing Roxana. [address] [place] [address], [place] [address], [place], [place], [address], [place]. tel:[phone] [facility] [address], [place], [place], [address] , [place] tel: [phone] [place] OTHER SPECF VACNATION Aug-0 3-200 6 Sewing Roxana. [address] [place] [address], [place], [place], [address], [place]. tel:[phone] [facility] [address], [place], [place], [address] , [place] tel: [phone] [place] No Information Mar- 8-200 6 Gakes Olamide. [address] [place] [address], [place], [place], [address]. tel:[phone] [facility] [address], [place], [address] , [place] tel: [phone] [place] OTHR MIGRNE WO NTRC MGRN Oct-2 6-200 5 Rhonda Rm. [address], [place], [place], [address], [place]. tel:[phone] [facility] [address], [place], [place], [address] , [place] tel:[phone] [place] LUMBAGO Oct-2 9-200 3 Conversion Doctor. [address] [facility] [facility], [place], [address], . Family History Family Member Type Diagnosis Age At Onset Paternal grandmother Problem (finding) malignant melan trice Mother Problem (finding) Crohn's disease Problem (finding) Family history of hyper tension Immunizations Vaccine Date Status Comments HPV (bivalent) not administered Source: N ew Immunization Record Influenza, seasonal, injectable (3 yrs or older) administered Note: benjamin singleton ; Source: Source Unspecified Pnemovax 23 Inj 25MCG/0.5ML administered Note: Cherelle Lot# [id number] ; Source: New Immunization Record Fluvirin Multidose Vial 2012-14 .05ml administered Note: Cherlele Lot# [id number] ; Source: New Immunization Record flu (split) (3 yrs or older) administered Source: Other Provid er 58065 - Influenza administered Source: So urce Unspecified 41776 - Tetanus_Diptheria_Pertussis _Tdap administered Source: Source Unspe cified 48163 - Hepatitis_A administered Source: Source Unspecified 43823 - HPV administered Source: Source Unspecified 24164 - HPV administered Source: Source Unspecified 71703 - Influenza administered Source: So urce Unspecified 77565 - HPV administered Source: Source Unspecified 15299 - Hepatitis_A administered Source: Source Unspecified 87909 - Meningococcal_MCV4 administered S ource: Source Unspecified 19187 - Influenza administered Source: So urce Unspecified Payers Payer name Insurance type Covered alliance party ID Authoriza tion(s) Victoria SANTORO CI [id number] [facility] SHANIA SANTORO CI [id number] Social History Type Description Quantity Date Captured Comments Alcohol Use Details Unknown Caffeine Use Details Unknown Tobacco Use Status Smoking Status No Information Sex Female Chief Complaint And Reason For Visit No Information Reason For Referral Reason For Referral No Information History Of Present Illness Encounter Date Complaint History Of Prese nt Illness No Information Functional Status Date Functional Assessmen t No Information Instructions Date Instruction Additional Infor mation No Information Assessments Type Assessment Date No Information Patient Care Teams Name Effective Dates (start - stop) Status Members No Information
--- OUTSIDE RECORDS SUMMARY | 2023-02-06 06:23 | XMS_ITS | Continuity of Care Document ---
Author Organization [facility] Address [address] [place] [address] Phone Care Team Providers Care Farm Equipment Maintenance Supervisor Name Role Phone Shivani PT, DPT, Magno Unavailable Unavailable Procedures Procedure Date PT Evaluation Moderate Complexity Therapeutic Activities Neuromuscular Re-Ed Therapeutic Exercise Screen Advance Directives Directive Yes / No Effective Date File Name No Information Encounters Encounter Description Practice Location Reason(s) For Visit Diagnoses Date Provider Providers Copied on Encounter [facility], [address] [address], [place], [place], [id number], tel:[phone] [place] No Information 3 Shivani Kiran. . [facility], [place], [place], [id number], tel:[phone] [place] No Information 3 Shivani Kiran. . Referring Provider: Soy Nguyen, [address] [place], [address]. tel:[phone] 9418 [facility], [address], [place], [place], [id number], [place] tel:[phone] [place] Pain in right knee 6 Ely Hughes. [address], [address], [place], [address], [place]. tel: [phone] Referring Provider: Physician Screen. Family History Family Member Type Diagnosis Age At Onset No Information Payers Payer name Insurance type Covered alliance party ID Amalia reagan(s) [facility] CI [id number] Social History Type Description Quantity Date Captured Comments Sex Female Smoking Status No Information Chief Complaint And Reason For Visit No Information Reason For Referral Reason For Referral No Information History Of Present Illness Encounter Date Complaint History Of Prese nt Illness No Information Functional Status Date Functional Assessmen t No Information Instructions Date Instruction Additional Infor matcriss Giving encouragement to exercise Related to Overweight Giving encouragement to exercise Related to Overweight Assessments Type Assessment Date No Information Patient Care Teams Name Effective Dates (start - stop) Status Members No Information
[2025-06-02 14:02] VITALS: BMI 23.7
--- OUTSIDE RECORDS SUMMARY | 2025-06-03 00:30 | XMS_ITS | Patient Health Record ---
Author Organization [facility] Address [address] [place] [address] [place] [id number] Care Team Providers Care Field Kiln Burner Name Role Phone Wendy DAWN, Soy Primary Care Provider Justa Krishnamurthy Unavailable [phone] Allergies Allergen (clinical drug ingredient) Drug/Non Drug Allergy documented on EMR Reaction Allergy Type Onset Date Status fremanezumab Ajovy Unknown Drug Allergy Acti ve Reason For Referral No Information Medications Medication SIG (Take, Route, Frequency, Duration) Notes Start Date End Date Status Pepcid 20 MG 1 tablet at bedtime as needed Orally Once a day Active NexIUM 20 MG 1 capsule 1/2 to 1 h our before morning meal Orally Once a day Active hydrOXYzine HCl 25 MG Oral; Duration: 90 Days Active traZODone HCl 50 MG Oral; Duration: 90 Days Active Rizatriptan Benzoate 5 MG Oral; Duration: 90 Days Active SUMAtriptan Succinate 100 MG Oral; Duration: 90 Days Active Spironolactone 100 MG Oral; Duration: 90 Days Active Ondansetron 4 MG Oral; Duration: 90 Days Active Amphetamine-Dextroamphet ER 30 MG Oral; Duration: 30 Days Acti ve Amphetamine-Dextroamphetamin e 5 MG Oral; Duration: 30 Days Acti ve Nurtec 75 MG Oral; Duration: 30 Days Active Problems Problem Type SNOMED Code ICD Code Onset Dates Problem Status W/U Status Risk Notes Problem Cervical spondylosis (571543886) Cervical spondylosis (M47.812) Active confirmed Problem Lumbar spondylosis (142516789) Lumbar spondylosis (M47.816) Active confirmed Problem Thoracic spondylosis (329733634) Thoracic spondylosis (M47.814) Active confirmed Problem Leg length discrepancy (042631013) Leg length discrepancy (M21.70) Active confirmed Problem Bilateral sacroiliitis (7470348011) Bilateral sacroiliitis (M46.1) Active confirmed Problem Migraine variant with headache (disorder) (094636887) Migraine headache (G43.909) Active confirmed Vital Signs Heart Rate 90 /min 04/29/2025 Respiratory Rate 18 /min 04/07/2025 Height-cm 154.94 cm 04/29/2025 Blood pressure diastolic 88 mm Hg 04/29/2025 Weight-kg 60.78 kg 04/29/2025 Height 5ft 1in in 04/29/2025 Blood pressure systolic 137 mm Hg 04/29/2025 Weight 134 lbs 04/29/2025 BMI 25.32 kg/m2 04/29/2025 Encounters Encounter Location Date Provider Diagnosis [facility] [address] [place] [phone] 04/07/2025 Justa Galeana Hypermobility syndrome M35.7 ; Cervical spondylosis M47.812 ; Thoracic spondylosis M47.814 ; Lumbar spondylosis M47.816 ; Leg length discrepancy M21.70 and Migraine headache G43.909 [facility] [address] [place] [phone] 04/17/2025 Justa Galeana Cervical spondylosis M47.812 ; Thoracic spondylosis M47.814 ; Lumbar spondylosis M47.816 ; Leg length discrepancy M21.70 ; Migraine headache G43.909 ; Low back pain M54.50 ; Bilateral sacroiliitis M46.1 and Attention deficit disorder F98.8 [facility] [address] [place] [phone] 04/29/2025 Justa Galeana Cervical spondylosis M47.812 ; Bilateral sacroiliitis M46.1 ; Thoracic spondylosis M47.814 ; Lumbar spondylosis M47.816 ; Leg length discrepancy M21.70 ; Migraine headache G43.909 and Hypermobility syndrome M35.7 [facility] [address] [place] [phone] 04/22/[address] [place] [address] Assessments Encounter Date Diagnosis (ICD Code) Assessment Notes Treatment Notes Treatment Clinical Notes Section Notes 04/07/2025 Hypermobility syndrome (ICD-10 - M35.7) 04/07/2025 Cervical spondylosis (ICD-10 - M47.812) 04/17/2025 Cervical spondylosis (ICD-10 - M47.812) 04/29/2025 Cervical spondylosis (ICD-10 - M47.812) 04/29/2025 Bilateral sacroiliitis (ICD-10 - M46.1) 04/29/2025 Thoracic spondylosis (ICD-10 - M47.814) 04/17/2025 Thoracic spondylosis (ICD-10 - M47.814) 04/07/2025 Thoracic spondylosis (ICD-10 - M47.814) 04/07/2025 Lumbar spondylosis (ICD-10 - M47.816) 04/17/2025 Lumbar spondylosis (ICD-10 - M47.816) 04/29/2025 Lumbar spondylosis (ICD-10 - M47.816) 04/29/2025 Leg length discrepancy (ICD-10 - M21.70) 04/17/2025 Leg length discrepancy (ICD-10 - M21.70) 04/07/2025 Leg length discrepancy (ICD-10 - M21.70) 04/29/2025 Migraine headache (ICD-10 - G43.909) 04/17/2025 Migraine headache (ICD-10 - G43.909) 04/17/2025 Low back pain (ICD-10 - M54.50) 04/07/2025 Migraine headache (ICD-10 - G43.909) 04/29/2025 Hypermobility syndrome (ICD-10 - M35.7) 04/17/2025 Bilateral sacroiliitis (ICD-10 - M46.1) 04/17/2025 Attention deficit disorder (ICD-10 - F98.8) 04/07/2025 Other Learning About How to Have a Healthy Back material was published, Learning About Benefits of Quitting Smoking material was published 04/17/2025 Other Learning About How to Have a Healthy Back material was published 04/29/2025 Other Learning About How to Have a Healthy Back material was published, Learning About Benefits of Quitting Smoking material was published Plan Of Treatment Pending Test Test Name Order Date X ray : Spines, cervical 2 views 025 X ray : Spines, lumbar 2 views 5 X ray : Thoracic spine 2 views 5 Leg Length 04/07/2025 Next Appt Details Provider Name:Justa Montenegro alexy, 06/10/2025 02:00:00 PM, [address] [place] [address], [address], [place], [address], Insurance Providers Payer Name Payer Address Payer Phone Subscriber Number Group Number Insured Name Patient Relationship to Insured Coverage Start Date Coverage End Date R [address] [address] [place] [address] [id number] Debbie Wilson Self - patient is the insured Medications Administered Medication Instructions Date of Administration Dosage Notes Bilateral Sacroiliac Joint Injection 04/29/2025 BILATERAL SIJ Psoas Injection 04/17/2025 RIGHT PSO Medical (General) History Surgical History Surgery Date(Month/Year) hysterectomy x2 septoplasty tummy tuck laparoscopy x3
--- OUTSIDE RECORDS SUMMARY | 2025-06-03 00:30 | XMS_ITS | Encounter Summary ---
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
--- OUTSIDE RECORDS SUMMARY | 2025-06-03 00:30 | XMS_ITS | Encounter Summary ---
Author Organization [facility] Healthcare Address [address] [place] [address] Care Team Providers Care Community Artist Name Role Phone Roxana Gauthier DO Primary Care Provider + [phone] Roxana Gauthier DO Primary Care Provider + [phone] Soy Nguyen MD Primary Care Provider [phone] Encounter Details Date Type Department Care Team (Late st Contact Info) Description [address] 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
--- OUTSIDE RECORDS SUMMARY | 2025-06-03 00:30 | XMS_ITS | Clinical Summary ---
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 15 tablet 1 Active fremanezumab-vfrm (Ajovy Autoinjector) 225 mg/1.5 mL auto-injector subcutaneous auto-injector Inject 1.5 mL (225 mg total) under the skin every 30 (thirty) days 1.5 mL 11 025 2024 Discontinued predniSONE (DELTASONE) 20 mg tablet Take 1 tablet (20 mg) by mouth daily for 5 days 5 tablet 025 2024 Hospital, Clinic, or Other Facility Administered Medication Ordered Dose Route Frequency Start Date End Date Status onabotulinumtoxin A (BOTOX) 200 unit injection 200 UnitsIndications:I ntractable chronic migraine without aura and without status migrainosus 200 Units OTHER Once for Clinic-Administe red Medication 07/14/2025 Active onabotulinumtoxin A (BOTOX) 200 unit injection 200 UnitsIndications:I ntractable chronic migraine without aura and without status migrainosus 200 Units OTHER Once for Clinic-Administe red Medication 03/25/2024 5 Discontinued onabotulinumtoxin A (BOTOX) 200 unit injection 200 UnitsIndications:I ntractable chronic migraine without aura and without status migrainosus 200 Units OTHER Once for Clinic-Administe red Medication 03/10/2025 5 Discontinued Active Problems Problem Noted Date Diagnosed Date Chronic pain of left knee 05/23/2019 Chronic sinusitis 04/05/2019 Intractable chronic migraine without aura and without status migrainosus 04/23/2018 Generalized anxiety disorder 04/23/2018 Anxiety 11/09/2006 Atypical migraine 11/09/2006 Encounters Date Type Department Care Team Description 05/27/2025 Orders Only [facility] Medicine General Neurology [address] 6th [address] [place] [id number] Carrie Trinidad Intractable chronic migraine without aura and without status migrainosus (Primary Dx) 05/16/2025 2:08 AM CDT - 05/16/2025 3:19 AM CDT Emergency [facility] Emergency Department [address] [place] [id number] Discharge Disposition: Left without being seen 05/16/2025 Results Follow-Up [facility] at [address] [address] Kena Victor NP Throat culture Throat 05/14/2025 3:16 PM CDT - 05/14/2025 11:59 PM CDT Hospital Encounter [address] [address] Other dysphagia Discharge Disposition: Discharge to home or self care 05/14/2025 2:45 PM CDT Office Visit [facility] Care at [address] [address] Marie Oseguera PA Other dysphagia (Primary Dx) 04/23/2025 8:39 AM CDT - 04/23/2025 11:59 PM CDT Hospital Encounter [facility] [address] [place] [phone] Discharge Disposition: Discharge to home or self care 04/21/2025 3:20 PM CDT Procedure visit [facility] Medicine General Neurology [address] 6th [address] [place] [address] Yasmine Campbell PA Intractable chronic migraine without aura and without status migrainosus (Primary Dx) 04/09/2025 Orders Only [facility] General Neurology [address] 6[address] [place] [phone] Carrie Trinidad Intractable chronic migraine without aura and without status migrainosus (Primary Dx) 04/07/2025 Telephone [facility] General Neurology [address] [place] [address] Marvin Enriquez RN 04/04/2025 10:00 AM CDT Telemedicine [facility] General Neurology 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 Comment:Testing performed by : [facility], [address] [place] [address] Throat 05/14/2025 3:16 PM CDT 05/15/2025 1:15 AM CDT Narrative JONATHAN ALDRIDGE - 05/15/2025 8:11 PM CDT Testing performed by [facility] ([phone]). [facility] MICROBIOLOGY - GENER AL ORDERABLES Final Result JONATHAN [address] [address] Chaney Department of Laboratories [place], [place] [phone] * POCT rapid strep A (05/14/2025 2:55 PM CDT) Rapid Strep A, POC Negative Negative Swab 05/14/2025 2:55 PM CDT [facility] POINT OF CARE TEST ORDER FRANCIS Final Result * XR Outside Reference (04/23/2025 8:39 AM CDT) Impressions [facility] - 04/23/2025 8:39 AM CDT These images are for Reference purposes only and have not been reviewed by [facility]. There will be no report generated by a [facility] Radiologist. Narrative [facility] - 04/23/2025 8:39 AM CDT EXAMINATION: Images For Reference Purposes Only Yasmine [facility] XR PROCEDURES Final Re sult [facility] from Last 3 Months Insurance [employer] [facility] [employer] Address: [facility] [id number] [place] [phone] [employer] [facility] [employer]PPO Address: [id number] [place] [phone] [facility] Address: [address] [place] [id number] Care Teams Canvas Cutter Relationship Specialty Start Date End Date Soy Nguyen MD PCP - General Family Medicine 03/24/17
[2025-06-03 10:09] VITALS: BP 112/74; PULSE 98; RESP 16; TEMP 36.3; O2SAT 100; BMI 23.9
--- NOTE | 2025-06-03 10:19 | P.PNAN_ITS ---
Anes - Initial Pre Proc Eval Procedure: Operation Date: 06/03/25 11:30 Proposed Procedures p Esophagogastroduodenoscopy - Adalberto Salcedo MD Date/Time: 06/03/25 10:19 Surgeon: Adalberto Salcedo MD Pre Op Diagnosis: Other specified symptoms and signs involving the c Patient Data Age: 39 Gender: F Height: 1.55 m Weight: 57 kg Allergies Allergy/AdvReac Type Severity Reaction Status Date / Time fremanezumab-vfrm (From Allergy Mild Hives Verified 06/03/25 10:15 Ajovy Autoinjector) codeine Allergy Unknown Unknown Verified 06/03/25 10:15 naproxen Allergy Unknown Difficulty Verified 06/03/25 10:15 Breathing Home Medications ?Medication ?Instructions ?Recorded ?Confirmed ?Type ondansetron HCl 8 mg tablet 8 mg PO Q12H 04/17/2005/19 History (Zofran) rizatriptan 10 mg tablet 10 mg PO .PRN 04/17/2006/02 History sumatriptan succinate 100 mg tablet 100 mg PO .PRN 06/02/25 History rimegepant 75 mg disintegrating 75 mg PO ONCE PRN Head ache 05/13/20 06/02/25 History tablet (Nurtec ODT) trazodone 50 mg tablet 100 mg (2 x 50 mg) PO QHS MT N 10/08/24 06/02/25 Rx insomnia #180 tabs cyclobenzaprine 10 mg tablet 10 mg PO TID PRN muscle s pasm #30 05/15/25 06/02/25 Rx tabs esomeprazole magnesium 20 mg 40 mg (2 x 20 mg) PO BID 14 days 05/16/25 06/02/25 Rx capsule,delayed release (Nexium #56 caps 24HR) pantoprazole 40 mg tablet,delayed 40 mg PO BID #30 tab s 05/16/25 06/02/25 Rx release pantoprazole 40 mg tablet,delayed 40 mg PO DAILY #30 t abs 05/16/25 06/02/25 Rx release spironolactone 100 mg tablet 100 mg PO DAILY #90 tabs 05/16/25 06/03/25 Rx hydroxyzine HCl 25 mg tablet See Rx Instructions .Rout e 05/27/25 06/02/25 Rx .COMPLEX #270 tabs dextroamphetamine-amphetamine 5 mg 5 mg PO DAILY #30 t abs 05/29/25 06/03/25 Rx tablet (Adderall) dextroamphetamine-amphetamine ER 30 mg PO DAILY #30 ca ps 05/29/25 06/03/25 Rx 30 mg 24hr capsule,extend release (Adderall XR) fexofenadine 180 mg tablet 180 mg PO Q12H 06/02/2506/19 History (Maria Guadalupe Allergy) Patient hx anesthesia problems: none Family hx anesthesia problems: none Results Review: All pre-operative results and documents have been reviewed as part of the pre- operative evaluation. [facility] Past Medical History Medical History Throat tightness Anxiety ADHD Screening for thyroid disorder Hypertension BMI 29.0-29.9,adult BMI 28.0-28.9,adult BMI 27.0-27.9,adult GERD (gastroesophageal reflux disease) Neurocardiogenic syncope Hiatal hernia Endometriosis Fibromyalgia Anxiety Psychiatric disorder Ulcer Migraine Headache Asthma Bleeding tendency Surgical History Surgical History History of hysterectomy Family History Family History Father Family history of hypercholesterolemia Hypercholesteremia Mother Hypertension Asthma Migraine Gastroparesis Alcoholism Grandparent Family history of malignant melanoma Family history of malignant neoplasm of skin Sibling Asthma Celiac disease Anxiety Social History Social History Smoking packs per day: 0.5 Smoking cigarettes per day: 10.0 Years smoked: 20 Smoking pack-years: 10.00 Smoking status: Current every day smoker Tobacco type: cigarettes Second hand tobacco smoke exposure: No Alcohol intake: never Substance use: never Substance use type: does not use Do You Feel Safe in your Home?: Yes Lack of Transportation: No Lack of Food: Never True Current Housing: I Have Housing Concerned About Future Housing: No Difficulty Paying Gas/Electric Bills: No Difficulty Paying for Meds: No Currently Unemployed: No Education: Master's Degree or Higher Difficulty w/ Childcare or Family Care: No Living arrangements: with family Occupation/Education: occupation 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 Informed Consent: The patient's anesthetic plan and its attendant risks and benefits were discussed with the patient/family/POA. Questions were solicited and answers provided to the satisfaction of the patient/family/POA.
[2025-06-03] MEDS: LACTATED RINGERS 1,000 ML 150 ML IV CONT (10:21)
--- NOTE | 2025-06-03 10:35 | P.HP_ITS ---
History of Present Illness History of Present Illness Consent: Risks, benefits, and alternatives have been discussed and questions answered. Patient agrees to proceed with procedure. Chief complaint: Other specified symptoms and signs involving the c Narrative: Debbie Awad is a 39 year old female here for egd, h/o dysphagia, she has already seen ENT Review of Systems Review of Systems: All systems reviewed & are unremarkable except as noted in HPI and below PMFSH Past Medical History Medical History Throat tightness Anxiety ADHD Screening for thyroid disorder Hypertension BMI 29.0-29.9,adult BMI 28.0-28.9,adult BMI 27.0-27.9,adult GERD (gastroesophageal reflux disease) Neurocardiogenic syncope Hiatal hernia Endometriosis Fibromyalgia Anxiety Psychiatric disorder Ulcer Migraine Headache Asthma Bleeding tendency Surgical History Surgical History History of hysterectomy Family History Family History Father Family history of hypercholesterolemia Hypercholesteremia Mother Hypertension Asthma Migraine Gastroparesis Alcoholism Grandparent Family history of malignant melanoma Family history of malignant neoplasm of skin Sibling Asthma Celiac disease Anxiety Social History Social History Smoking packs per day: 0.5 Smoking cigarettes per day: 10.0 Years smoked: 20 Smoking pack-years: 10.00 Smoking status: Current every day smoker Tobacco type: cigarettes Second hand tobacco smoke exposure: No Alcohol intake: never Substance use: never Substance use type: does not use Do You Feel Safe in your Home?: Yes Lack of Transportation: No Lack of Food: Never True Current Housing: I Have Housing Concerned About Future Housing: No Difficulty Paying Gas/Electric Bills: No Difficulty Paying for Meds: No Currently Unemployed: No Education: Master's Degree or Higher Difficulty w/ Childcare or Family Care: No Living arrangements: with family Occupation/Education: occupation 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[employer] Gender identity (if verbalized by the patient): Female Spiritual care concerns: No Meds Home Medications and Allergies Home Medications ?Medication ?Instructions ?Recorded ?Confirmed ?Type ondansetron HCl 8 mg tablet 8 mg PO Q12H 04/17/20 09/05/19 History (Zofran) rizatriptan 10 mg tablet 10 mg PO .PRN 04/17/2006/02 History sumatriptan succinate 100 mg tablet 100 mg PO .PRN 06/02/25 History rimegepant 75 mg disintegrating 75 mg PO ONCE PRN Head ache 05/13/20 06/02/25 History tablet (Nurtec ODT) trazodone 50 mg tablet 100 mg (2 x 50 mg) PO QHS FL N 10/08/24 06/02/25 Rx insomnia #180 tabs cyclobenzaprine 10 mg tablet 10 mg PO TID PRN muscle s pasm #30 05/15/25 06/02/25 Rx tabs esomeprazole magnesium 20 mg 40 mg (2 x 20 mg) PO BID 14 days 05/16/25 06/02/25 Rx capsule,delayed release (Nexium #56 caps 24HR) pantoprazole 40 mg tablet,delayed 40 mg PO BID #30 tab s 05/16/25 06/02/25 Rx release pantoprazole 40 mg tablet,delayed 40 mg PO DAILY #30 t abs 05/16/25 06/02/25 Rx release spironolactone 100 mg tablet 100 mg PO DAILY #90 tabs 05/16/25 06/03/25 Rx hydroxyzine HCl 25 mg tablet See Rx Instructions .Rout e 05/27/25 06/02/25 Rx .COMPLEX #270 tabs dextroamphetamine-amphetamine 5 mg 5 mg PO DAILY #30 t abs 05/29/25 06/03/25 Rx tablet (Adderall) dextroamphetamine-amphetamine ER 30 mg PO DAILY #30 ca ps 05/29/25 06/03/25 Rx 30 mg 24hr capsule,extend release (Adderall XR) fexofenadine 180 mg tablet 180 mg PO Q12H 06/02/2506/19 History (Maria Guadalupe Allergy) Allergies Allergy/AdvReac Type Severity Reaction Status Date / Time fremanezumab-vfrm (From Allergy Mild Hives Verified 06/03/25 10:15 Ajovy Autoinjector) codeine Allergy Unknown Unknown Verified 06/03/25 10:15 naproxen Allergy Unknown Difficulty Verified 06/03/25 10:15 Breathing Vital Signs Vital Signs - 24 hr 06/03/25 10:09 Temperature 97.3 F L Pulse Rate 98 Respiratory Rate 16 Blood Pressure 112/74 Pulse Oximetry 100 Oxygen Delivery Room Air Exam Const: General: comfortable and no acute distress HENMT: Face/Nose/Sinus: Normal nares present Eyes: General: appearance normal, both eyes and all related structures Neck: Neck: no JVD Resp: Auscultation: clear to auscultation bilaterally Cardio: Rate: regular rate Rhythm: regular rhythm GI: Inspection: non-distended GI Palp: Yes Soft to palpation Skin: General skin exam: normal color Neuro: Speech: normal speech Extrem: General: normal to inspection Psych: Mental Status: mental status grossly normal Assessment and Plan Assessment and plan (1) Dysphagia: Code(s): R13.10 - Dysphagia, unspecified Status: Inactive Assessment and Plan: egd with bx
[2025-06-03] MEDS: BENZOCAINE (*SP) 60 ML SPRAY CAN (HURRICAINE) 1 SPRAY MUCOUS MEM (10:39)
--- NOTE | 2025-06-03 10:44 | S_PTH ---
PATIENT: Debbie Ludwig LOC: [facility] U#:[id number] AGE/SX: 39/F ROOM: RE06/03/[address]: Adalberto Salcedo MD : 1985 BED: DIS: 06/03/2025 SPEC #: [id number] RECD: 06/03/25 11:02 STATUS: PEPITO YUNG #: [id number] ROSA: 06/03/25 10:[address]: Adalberto Salcedo DEPT: [facility] Surgical RECD BY: Bridgett Honeycutt ENTERED: 06/03/25 11:03 SP TYPE: Surgical OTHR DR: Soy Nguyen MD Tissues: A - Gastric Biopsy B - Esophageal Biopsy C - Esophageal Biopsy Procedures: Hematoxylin and Eosin Stain Gross and Microscopic Level 4
[2025-06-03 10:47] VITALS: BP 100/65; PULSE 88; RESP 24; O2SAT 100
[2025-06-03 10:57] VITALS: BP 104/71; PULSE 80; RESP 17; O2SAT 100
[2025-06-03 11:07] VITALS: BP 112/75; PULSE 87; RESP 20; O2SAT 100
== END 2025-06-03 11:16 | disposition home or self-care (01) ==
PROVIDERS: PCP Family Medicine; Referring Provider Nurse Practitioner Family; Visit Provider Internal Medicine Gastroenterology
PROC: 0DJ08ZZ Inspection of Upper Intestinal Tract, Via Natural or Artificial Opening Endoscopic (ICD-10-PCS; CPT 43239; principal; 2025-06-03 11:30)
DX: K21.00 Gastro-esophageal reflux disease with esophagitis, without bleeding (principal); I10 Essential (primary) hypertension; M79.7 Fibromyalgia; J45.909 Unspecified asthma, uncomplicated; F41.9 Anxiety disorder, unspecified; F90.9 Attention-deficit hyperactivity disorder, unspecified type; R55 Syncope and collapse; N80.9 Endometriosis, unspecified; F99 Mental disorder, not otherwise specified; F17.210 Nicotine dependence, cigarettes, uncomplicated; Z98.890 Other specified postprocedural states; Z87.11 Personal history of peptic ulcer disease; Z80.8 Family history of malignant neoplasm of other organs or systems; Z84.0 Family history of diseases of the skin and subcutaneous tissue
CPT/HCPCS: 43239; 88305; J2003; J2704; J7120

== ENCOUNTER 2025-06-20 15:53 | Outpatient (CLI) | payer OTHER, SELFPAY ==
--- NOTE | ~2025-06-20 | US_ITS ---
US thyroid INDICATION: Enlarged thyroid gland TECHNIQUE: Real-time sonographic images of the thyroid gland were obtained. COMPARISON: No prior studies for comparison. FINDINGS: The right thyroid lobe measures 4.6 x 1.9 x 1.5 cm. The left thyroid lobe measures 4.5 x 1.4 x 1.5 cm. There is normal echotexture and echogenicity throughout the thyroid gland. There are small bilateral benign-appearing thyroid masses, largest on the right measuring 3 mm and on the left measuring 5 mm. No mass meet sonographic criteria for biopsy. Name Normal vascular flow is present. IMPRESSION: 1. Small bilateral thyroid masses, likely benign. No masses are identified which meet sonographic criteria for biopsy.. Reviewed, dictated and finalized at location O. IMPRESSION: 1. Small bilateral thyroid masses, likely benign. No masses are identified whi ch meet sonographic criteria for biopsy..
== END 2025-06-20 15:54 | disposition home or self-care (01) ==
LOC: MICIMG 15:55
PROVIDERS: Visit Provider Otolaryngology
DX: E04.2 Nontoxic multinodular goiter (principal)
CPT/HCPCS: 76536

== ENCOUNTER 2025-07-02 14:27 | Outpatient (CLI) | payer OTHER, SELFPAY ==
--- NOTE | ~2025-07-02 | MR_ITS ---
EXAMINATION: MR brain/brain stem wo/w con DATE: 07/02/2025 15:07 INDICATION: Chronic migraine with aura TECHNIQUE: Magnetic resonance imaging (MRI) of the brain and brainstem was performed without and with 12 mL Multihance intravenous contrast. Sequences included sagittal and axial T1-weighted SE, axial diffusion-weighted FS SE, axial T2*-weighted GRE, axial T2-weighted FLAIR, and axial T2-weighted FSE. Postcontrast axial and coronal T1-weighted SE was obtained. Apparent diffusion coefficient (ADC) maps were created. COMPARISON: None. FINDINGS: There are no areas of restricted diffusion to suggest acute infarction. No intracranial hemorrhage or abnormal intracranial mass lesion. Single nonspecific small focus of increased T2-weighted signal intensity in the left frontal lobe white matter which is within normal limits for age. There are no int raparenchymal signal abnormalities seen on the other pulse sequences. The ventricles are symmetric and normal in size. There are no abnormal extra-axial fluid collections. Flow voids are seen in the cerebral arteries on the T2- weighted sequences consistent with their expected patency. Visualized orbits and soft tissues are unremarkable. Mild mucosal thickening the left ethmoid sinus, bubbly mucus in the left sphenoid sinus and mucous retention cyst along the inferior left maxillary sinus. There are no areas of abnormal enhancement on the post contrast images. IMPRESSION: 1. Normal for age brain with no acute intracranial process. 2. Bubbly mucus in the left sphenoid sinus which could be seen with acute sinusitis. Reviewed, dictated and finalized at location A. IMPRESSION: 1. Normal for age brain with no acute intracranial process. 2. Bubbly mucus in the left sphenoid sinus which could be seen with acute sinus itis.
== END 2025-07-02 14:28 | disposition home or self-care (01) ==
PROVIDERS: PCP Anesthesiology
DX: G43.719 Chronic migraine without aura, intractable, without status migrainosus (principal)
CPT/HCPCS: 70553; A9577

== ENCOUNTER 2025-07-03 13:42 | Outpatient (CLI) | payer OTHER, SELFPAY ==
--- NOTE | ~2025-07-03 | XR_ITS ---
EXAMINATION: XR foot RT min 3V, 07/03/2025 13:58 CDT HISTORY: M79.671 - Pain in right foot COMPARISON: No comparisons available. Findings: No acute fracture or malalignment. No significant degenerative changes. Soft tissues unremarkable. Impression: No acute fracture or malalignment. Reviewed, dictated and finalized at location P. Impression: No acute fracture or malalignment.
== END 2025-07-03 13:43 | disposition home or self-care (01) ==
PROVIDERS: PCP Family Medicine
DX: M79.671 Pain in right foot (principal)
CPT/HCPCS: 73630